=== PATIENT | female | born 1965 | race Caucasian/White ===

== ENCOUNTER 2017-04-07 08:00 | Day surgery (SDC) | payer OTHER ==
[~2017-04-07] VITALS: Ht 157.5 cm; Wt 70.3 kg
[~2017-04-07 08:00] MED LIST: ADVIL200 MG PO
--- NOTE | 2017-04-07 11:17 | NUR ---
04/07/17 1117 Elio Padilla BUNG REMOVER MEDICATING PT FOR PAIN AND ANXIETY DURING REPORT.
--- NOTE | 2017-04-07 13:08 | NUR ---
PT TOLERATED CRACKERS AND CHICKEN NOODLE SOUP. NO NAUSEA NOTED. PT UP TO THE BATHROOM AND VOID REPORTED. PT BACK TO ROOM AND GETTING DRESSED.
--- NOTE | 2017-04-07 13:47 | NUR ---
PT STEADY ON FEET WITH ONE PERSON STAND BY ASSIST. PT TOLERATES PO FOOD AND FLUIDS AND VOIDS WITHOUT ISSUE. PT DRESSES SELF. DISCHARGE INSTURCTONS REVIEWED WITH PT AND FRIEND. PT AND FRIEND VERBALIZE UNDERSTANDING OF INSTRUCTIONS. AMISH ASKED AND ANSWERED.
--- NOTE | 2017-04-07 15:10 | OR ---
[facility] [address], [place] [address] Signed DATE OF OPERATION: 04/07/2017 SURGEON: Tulio Helm MD PREOPERATIVE DIAGNOSIS: Chronic sinusitis with a septal deformity. POSTOPERATIVE DIAGNOSIS: Chronic sinusitis with a septal deformity. PROCEDURES: Septoplasty and bilateral intranasal ethmoidectomy. ANESTHESIA: General LMA, Mateus PEREZ. PREOPERATIVE HISTORY: Cleo is a 51-year-old lady with chronic sinusitis and abnormal CAT scan, despite appropriate medications. She has facial pain, headaches, nasal congestion, drainage, and unresponsive to appropriate medication. She is taken to the operating room for the above-mentioned procedures. OPERATIVE PROCEDURE AND FINDINGS: After informed consent, the patient was taken to the operating room, and placed in the supine position, where general LMA anesthesia was induced. The patient and procedure were verified. The preop CT was viewed throughout. The patient received preoperative intranasal oxymetazoline and intravenous Ancef. Headlight nasal speculum exam of the nasal cavity showed a significant septal deformity on the left side making it difficult to access the middle meatus. Septal mucosa was injected with 1% lidocaine with epinephrine and the septal deformity was removed with the Radha. Airway was improved. Access to the middle meatus obtained in this manner. There was a small spur on the right inferior septum, which was also excised with the Radha. The left side was then approached. The middle turbinate was medialized and the ethmoid bulla taken down with the Radha. Anterior and posterior ethmoid air cells were opened per CT review. There was fairly significant polypoid mucosa present in these sinuses. All affected sinuses were opened and middle meatal antrostomy was made with a curved ring curette and the sinus cleaned out with a curette. The antrostomy was widened with the Radha. Bleeding was minimal. Packing was placed on this side. A Bravo Cong coated with Neosporin in the middle meatus and a trimmed Merocel pack in the nasal Electronically Signed By: TULIO HELM MD 04/07/17 1510 PATIENT NAME: CLEO SHAH OPERATIVE REPORT DATE OF : 63 PHYSICIAN: TULIO HELM MD REPORT #: [id number] REPORT IS CONFIDENTIAL AND NOT TO BE RELEASED WITHOUT AUTHORIZATION [facility] [address] [place] [id number] Signed cavity. The specimen was sent to pathology. The right side was approached similar procedure as the left side quite a bit less polypoid material on this side, but some particularly posteriorly. The sinuses were opened. The antrostomy was made. Packing was placed as per the left side. The packing strings were tied anteriorly over a pad. The pharynx was suctioned clear blood secretions. Hemostasis was verified. The patient was then awakened, extubated, and transported to recovery room in good condition. No complications. Blood loss minimal. Specimen to pathology, packing two pieces of Merocel each nostril. Tulio Helm MD GC/MODL /[id number] Electronically Signed By: TULIO HELM MD 04/07/17 1510 PATIENT NAME: ALYSSACLEOTAMIA FINCH OPERATIVE REPORT DATE OF : 63 PHYSICIAN: TULIO HELM MD REPORT #: [id number] REPORT IS CONFIDENTIAL AND NOT TO BE RELEASED WITHOUT AUTHORIZATION
== END 2017-04-07 13:40 | disposition home or self-care (01) ==
LOC: DS 08:00 → DSVR 13:03 → DS 13:03
PROVIDERS: Otolaryngology
PROC: 09BV8ZZ Excision of Left Ethmoid Sinus, Via Natural or Artificial Opening Endoscopic (ICD-10-PCS; 2017-04-07)
PROC: 09BU8ZZ Excision of Right Ethmoid Sinus, Via Natural or Artificial Opening Endoscopic (ICD-10-PCS; 2017-04-07)
PROC: 09SM0ZZ Reposition Nasal Septum, Open Approach (ICD-10-PCS; principal; 2017-04-07 10:00)
DX: J34.2 Deviated nasal septum (principal); J32.2 Chronic ethmoidal sinusitis; E78.00 Pure hypercholesterolemia, unspecified; I44.7 Left bundle-branch block, unspecified; I34.0 Nonrheumatic mitral (valve) insufficiency; I50.9 Heart failure, unspecified; F41.0 Panic disorder [episodic paroxysmal anxiety]; F32.9 Major depressive disorder, single episode, unspecified; F17.210 Nicotine dependence, cigarettes, uncomplicated; Z90.49 Acquired absence of other specified parts of digestive tract; Z90.710 Acquired absence of both cervix and uterus
CPT/HCPCS: 00160; J0690; J1100; J1885; J2250; J2405; J2704; J2765; J3010; J7120

== ENCOUNTER 2019-06-13 16:35 | Emergency (ER) | payer OTHER ==
[~2019-06-13] VITALS: Ht 157.5 cm; Wt 74.8 kg
--- OUTSIDE RECORDS SUMMARY | ~2019-06-13 | XMS | Clinical Summary ---
Demographics + + + | Address | [address] | | | [place] [address] | + + + | Home Phone | | + + + | Preferred Language | Unknown | + + + | Marital Status | | + + + | Christianity Affiliation | Unknown | + + + | Race | Unknown | + + + | Ethnic Group | Unknown | + + + Author + + + | Author | [facility] [employer] (Historical as of | | | 01-22-19) | + + + | Organization | [facility] [employer] (Historical as of | | | 01-22-19) | + + + | Address | Unknown | + + + | Phone | Unavailable | + + + Support + + +---------+ + | Name | Relationship | Address | Phone | + + +---------+ + | Keyla Cho | ANDREE | Unknown | | + + +---------+ + Care Team Providers + +------+ + | Care Pellet Preparation Operator Name | Role | Phone | + +------+ + | Dolores Mayorga PA-C | PP | | + +------+ + Allergies No Known Allergies Current Medications + + +--------+---------+------+------+-------+ | Prescription | Sig. | Disp. | Refills | Star | End | Statu | | | | | | t | Date | s | | | | | | Date | | | + + +--------+---------+------+------+-------+ | potassium chloride | Take 20 mEq by mouth | | 0 | 11/1 | | Activ | | SA (KNOAH MICHELLE) | daily. | | | 5/20 | | e | | 20 MEQ | | | | 17 | | | | tabletIndications: | | | | | | | | when taking | | | | | | | | furosemide | | | | | | | + + +--------+---------+------+------+-------+ | gabapentin | Take 300 mg by mouth | | 0 | 05/1 | | Activ | | (NEURONTIN) 300 MG | 3 (three) times | | | 8/20 | | e | | capsule | daily. | | | 18 | | | + + +--------+---------+------+------+-------+ | atorvastatin | take 1 tablet by | 90 | 0 | 06/1 | | Activ | | (LIPITOR) 20 MG | mouth every evening | tablet | | 7/20 | | e | | tablet | | | | 19 | | | + + +--------+---------+------+------+-------+ | furosemide (LASIX) | take 1 tablet by | 90 | 0 | 06/1 | | Activ | | 20 MG tablet | mouth every morning | tablet | | 7/20 | | e | | | | | | 19 | | | + + +--------+---------+------+------+-------+ | lisinopril | take 1 tablet by | 90 | 0 | 06/1 | | Activ | | (ZESTRIL) 5 MG | mouth once daily | tablet | | 7/20 | | e | | tablet | | | | 19 | | | + + +--------+---------+------+------+-------+ | carvedilol (COREG) | take 1 tablet by | 180 | 0 | 06/1 | | Activ | | 25 MG tablet | mouth twice a day | tablet | | 7/20 | | e | | | with meals | | | 19 | | | + + +--------+---------+------+------+-------+ Active Problems + + + | Problem | Noted Date | + + + | Dilated cardiomyopathy (HCC) | | + + + | Chronic systolic CHF (congestive heart failure) (HCC) | | + + + | LBBB (left bundle branch block) | | + + + Family History + + +------+ + | Medical History | Relation | Name | Comments | + + +------+ + | Stroke | Brother | | | + + +------+ + | Drug abuse | Daughter | | | + + +------+ + | Cancer | Maternal | | pancreatic CA | | | Grandfath | | | | | er | | | + + +------+ + | Heart failure | Maternal | | | | | Grandmoth | | | | | er | | | + + +------+ + | Thyroid disease | Maternal | | | | | Grandmoth | | | | | er | | | + + +------+ + | COPD | Mother | | | + + +------+ + | Diabetes type II | Mother | | | + + +------+ + | Heart failure | Mother | | | + + +------+ + | Hypertension | Mother | | | + + +------+ + | Stroke | Mother | | | + + +------+ + + +------+ + + | Relation | Name | Status | Comments | + +------+ + + | Brother | | Alive | | + +------+ + + | Brother | | Alive | | + +------+ + + | Daughter | | | "central nervous system vasculitis" | | | | (Age | | | | | 24) | | + +------+ + + | Daughter | | Alive | | + +------+ + + | Father | | Other | unknown | + +------+ + + | Maternal Grandfather | | | | + +------+ + + | Maternal Grandmother | | | | + +------+ + + | Mother | | | COPD | | | | (Age | | | | | 72) | | + +------+ + + Social History + +-------+ +--------+------+ | Tobacco Use | Types | Packs/Day | Years | Date | | | | | Used | | + +-------+ +--------+------+ | Current Every Day | | 0.5 | 43 | | | Smoker | | | | | + +-------+ +--------+------+ + +---+---+---+ | Smokeless Tobacco: | | | | | Never Used | | | | + +---+---+---+ + + | Tobacco Cessation: Ready to Quit: Yes; Counseling Given: Yes | | 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 | + + + + +---------+ + | Alcohol Use | Drinks/We | oz/Week | Comments | | | ek | | | + + +---------+ + | No | | | | + + +---------+ + + + + | Sex Assigned at | Date Recorded | | | | + + + | Not on file | | + + + Last Filed Vital Signs + + + + | Vital Sign | Reading | Time Taken | + + + + | Blood Pressure | 132/80 | 11/23/2017 9:54 AM PDT | + + + + | Pulse | 70 | 11/23/2017 9:54 AM PDT | + + + + | Temperature | - | - | + + + + | Respiratory Rate | 18 | 11/23/2017 9:54 AM PDT | + + + + | Oxygen Saturation | 96% | 11/23/2017 9:54 AM PDT | + + + + | Inhaled Oxygen | - | - | | Concentration | | | + + + + | Weight | 81.4 kg (179 lb 8 | 11/23/2017 9:54 AM PDT | | | oz) | | + + + + | Height | 157.5 cm (5' 2") | 11/23/2017 9:54 AM PDT | + + + + | Body Mass Index | 32.83 | 11/23/2017 9:54 AM PDT | + + + + Plan of Treatment + + + + + | Health Maintenance | Due Date | Last Done | Comments | + + + + + | Vaccine: | | | | | Dtap/Tdap/Td (1 - | 4 | | | | Tdap) | | | | + + + + + | Vaccine: | | | | | Pneumococcal 19-64 | 4 | | | | (PPSV23 only) Medium | | | | | Risk (1 of 1 - | | | | | PPSV23) | | | | + + + + + | Cervical Cancer | | | | | Screening (Pap) | 5 | | | + + + + + | Breast Cancer | | | | | Screening | 5 | | | | (Mammogram) | | | | + + + + + | Colon Cancer | | | | | Screening | 5 | | | | (Colonoscopy) | | | | + + + + + | Vaccine: Zoster (1 | | | | | of 2) | 5 | | | + + + + + | Vaccine: Influenza | | | | | (#1) | 9 | | | + + + + + Results Not on filefrom Last 3 Months Insurance + +--------+ +------+-------+ + | Payer | Benefi | Subscriber | Type | Phone | Address | | | t Plan | ID | | | | | | / | | | | | | | Group | | | | | + +--------+ +------+-------+ + | MEDICAID | ABNER | [id number] | | | [address] | | | N | | | | [place], [place] | | | [place] | | | | [phone] | | | HOME CARE MANAGER RN | | | | | + +--------+ +------+-------+ + + +--------+ +--------+ + + | Guarantor Name | Accoun | Relation to | Date | Phone | Billing Address | | | t Type | Patient | of | | | | | | | | | | + +--------+ +--------+ + + | CLEO ROLON | Person | Self [birth year] Home: | [address] | | [address]/Fam | | 1966 | [phone] | [place] [address] | | | imelda | | | [phone] | | + +--------+ +--------+ + +
--- OUTSIDE RECORDS SUMMARY | ~2019-06-13 | XMS | Encounter Summary ---
Demographics + + + | Address | [address] | | | [place] [address] | + + + | Home Phone | | + + + | Preferred Language | Unknown | + + + | Marital Status | | + + + | Worship Affiliation | Unknown | + + + | Race | Unknown | + + + | Ethnic Group | Unknown | + + + Author + + + | Author | [facility] | | | and [place] | + + + | Organization | [facility] | | | and [place] | + + + | Address | Unknown | + + + | Phone | Unavailable | + + + Support + + +---------+ + | Name | Relationship | Address | Phone | + + +---------+ + | Keyla Cho | ECON | Unknown | | + + +---------+ + Care Team Providers + +------+ + | Care Stock Room Manager Name | Role | Phone | + +------+ + | Dolores Mayorga | PCP | | + +------+ + Reason for Visit + + + | Reason | Comments | + + + | Medication Refill | | + + + Encounter Details +--------+--------+ + + + | Date | Type | Department | Care Team | Description | +--------+--------+ + + + | 04/05/ | Refill | [facility] | Suki Emery | Medication Refill | | 2019 | | CARDIOLOGY [place] | [address] | | | | | [address] | [address] | | | | | [address] | [place] [address] | | | | | [place], [place] | [phone] | | | | | [address] | | | | | | [phone] | | | +--------+--------+ + + + Social History + + + +--------+ + | Tobacco Use | Types | Packs/Day | Years | Date | | | | | Used | | + + + +--------+ + | Current Every Day | Cigarettes | 0.5 | 46 | Started: 03/28/1974 | | Smoker | | | | | + + + +--------+ + + +---+---+---+ | Smokeless Tobacco: | | | | | Never Used | | | | + +---+---+---+ + + | 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 | + + documented as of this encounter Plan of Treatment +--------+---------+ + + + | Date | Type | Specialty | Care Team | Description | +--------+---------+ + + + | 11/14/ | Office | Cardiology | Harjinder Walker, | | | 2019 | Visit | | MD [address] | | | | | | [place], | | | | | | [place] [address] | | | | | | [phone] | | | | | | | | +--------+---------+ + + + documented as of this encounter Visit Diagnoses Not on filedocumented in this encounter"
--- OUTSIDE RECORDS SUMMARY | ~2019-06-13 | XMS | Encounter Summary ---
Demographics + + + | Address | [address] | | | [place] [address] | + + + | Home Phone | | + + + | Preferred Language | Unknown | + + + | Marital Status | | + + + | Christianity Affiliation | Unknown | + + + | Race | Unknown | + + + | Ethnic Group | Unknown | + + + Author + + + | Author | [facility] | | | and [place] | + + + | Organization | [facility] | | | and [place] [...] Team Providers + +------+ + | Care Parts Counter Salesperson Name | Role | Phone | + [...] Description | +--------+--------+ + + + | 02/16/ | Refill | [facility] | Suki Emery | Medication Refill | | 2019 | | CARDIOLOGY [place] | [address] | | | | | [address] | [address] | | | | | [address] | [place] [address] | | | | | [place] | [phone] | | | | | [address] | | | | | | [phone] | | | +--------+--------+ + + + Social History + +-------+ +--------+------+ | Tobacco Use | Types | Packs/Day | Years | Date | | | | | Used | | + +-------+ +--------+------+ | Current Every Day | | 0.5 | | | | Smoker | | | | | + +-------+ +--------+------+ + + | 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
--- OUTSIDE RECORDS SUMMARY | ~2019-06-13 | XMS | Encounter Summary ---
Demographics + + + | Address | [address] | | | [place] [address] | + + + | Home Phone | | + + + | Preferred Language | Unknown | + + + | Marital Status | | + + + | Sabianism Affiliation | Unknown | + + + | Race | Unknown | + + + | Ethnic Group | Unknown | + + + Author + + + | Author | [facility] | | | and [place] | + + + | Organization | [facility] | | | and [place] | [...] Team Providers + +------+ + | Care Database Programmer Analyst Name | Role | Phone | + +------+ + | Dolores Mayorga | PCP | | + +------+ + Encounter Details +--------+ + + + + | Date | Type | Department | Care Team | Description | +--------+ + + + + | 07/03/ | Orders Only | [facility] | Harjinder Walker, | | | 2018 | | CARDIOLOGY [place] | [address] | | | | | [address] | [place], | | | | | [place] | [place] [address] | | | | | [address] | [phone] | | | | | [phone] | | | +--------+ + + + + Social History + +-------+ +--------+------+ | Tobacco Use | Types | Packs/Day | Years | Date | | | | | Used | | + +-------+ +--------+------+ | Never Assessed | | | | | + +-------+ +--------+------+ + + + | Sex Assigned at [...] | | | | | | [place] [address] | | | | | | [phone] | | | | | | | | +--------+---------+ + + + documented as of this encounter Procedures + +--------+ + + + | Procedure Name | Priori | Date/Time | Associated Diagnosis | Comments | | | ty | | | | + +--------+ + + + | COMPREHENSIVE | Routin | 07/03/2017 | | Results for this | | METABOLIC PANEL | e | 11:10 AM | | procedure are in the | | | | PST | | results section. | + +--------+ + + + documented in this encounter Results Comprehensive Metabolic Panel (07/03/2017 11:10 AM PST) + + + + + + | Component | Value | Ref Range | Performed | Pathologist | | | | | At | Signature | + + + + + + | Glucose, | 99 | 70 - 100 mg/dL | EXTERNAL | | | Fasting | | | LAB | | + + + + + + | BUN | 13 | 6 - 23 mg/dL | EXTERNAL | | | | | | LAB | | + + + + + + | Creatinine | 0.67 (A) | 0.70 - 1.33 | EXTERNAL | | | | | mg/dL | LAB | | + + + + + + | BUN/Creatin | 19.4 | 6.0 - 28.6 | EXTERNAL | | | ine Ratio | | | LAB | | + + + + + + | Calcium | 9.3 | 8.4 - 10.2 | EXTERNAL | | | | | mg/dL | LAB | | + + + + + + | Protein, | 7.1 | 6.0 - 8.0 g/dL | EXTERNAL | | | Total | | | LAB | | + + + + + + | Albumin | 4.3 | 3.5 - 5.0 | EXTERNAL | | | | | | LAB | | + + + + + + | Globulin | 2.8 | 1.8 - 3.5 | EXTERNAL | | | | | | LAB | | + + + + + + | A/G Ratio | 1.5 | 1.1 - 2.4 | EXTERNAL | | | | | | LAB | | + + + + + + | Bilirubin | 0.5 | 0.0 - 1.2 mg/dL | EXTERNAL | | | Total | | | LAB | | + + + + + + | ALP, | 81 | 31 - 130 | EXTERNAL | | | External | | | LAB | | + + + + + + | ALT | 13 | 7 - 52 U/L | EXTERNAL | | | | | | LAB | | + + + + + + | AST | 17 | 13 - 39 U/L | EXTERNAL | | | | | | LAB | | + + + + + + | Na | 138 | 132 - 143 | EXTERNAL | | | | | mmol/L | LAB | | + + + + + + | K | 3.9 | 3.6 - 5.1 | EXTERNAL | | | | | mmol/L | LAB | | + + + + + + | Cl | 106 | 95 - 112 mmol/L | EXTERNAL | | | | | | LAB | | + + + + + + | CO2 | 24 | 19 - 31 mmol/L | EXTERNAL | | | | | | LAB | | + + + + + + | Anion Gap | 11.9 | 7 - 21 mmol/L | EXTERNAL | | | | | | LAB | | + + + + + + | Estimated | 92 | 60 mg/dL | EXTERNAL | | | GFR | | | LAB | | + + + + + + + + | Specimen | + + | Blood specimen | | (specimen) | + + + +---------+ + + | Performing | Address | City/State/Zipcode | Phone Number | | Organization | | | | + +---------+ + + | EXTERNAL LAB | | | | + +---------+ + + documented in this encounter Visit Diagnoses Not on filedocumented in this encounter"
--- OUTSIDE RECORDS SUMMARY | ~2019-06-13 | XMS | Clinical Summary ---
Demographics + + + | Address | [address] | | | [place] [address] | + + + | Home Phone | | + + + | Preferred Language | Unknown | + + + | Marital Status | | + + + | Orthodoxy Affiliation | Unknown | + + + | Race | Unknown | + + + | Ethnic Group | Unknown | + + + Author + + + | Author | [facility] | | | and [place] | + + + | Organization | [facility] | | | and [...] Team Providers + +------+ + | Care Extract Wringer Name | Role | Phone | + +------+ + | Dolores Mayorga | PCP | | + +------+ + Allergies No Known Allergies Medications + + + +---------+------+------+-------+ | Medication | Sig | Dispensed | Refills | Star | End | Statu | | | | | | t | Date | s | | | | | | Date | | | + + + +---------+------+------+-------+ | gabapentin | Take 300 mg by mouth | | 0 | 05/1 | | Activ | | (NEURONTIN) 300 mg | 3 (three) times | | | 8/20 | | e | | capsule | daily. | | | 18 | | | + + + +---------+------+------+-------+ | loratadine | Take 10 mg by mouth | | 0 | | | Activ | | (ALLERGY) 10 mg | Daily. | | | | | e | | tablet | | | | | | | + + + +---------+------+------+-------+ | carvedilol (COREG) | Take 1 tablet by | 90 | 3 | 10/2 | | Activ | | 25 mg tablet | mouth 2 times daily | tablet | | 1/20 | | e | | | (with breakfast & | | | 19 | | | | | dinner). | | | | | | + + + +---------+------+------+-------+ | furosemide (LASIX) | Take 1 tablet by | 90 | 3 | 10/2 | | Activ | | 20 mg tablet | mouth every morning. | tablet | | 1/20 | | e | | | | | | 19 | | | + + + +---------+------+------+-------+ +---+ + | | Additional | | | informationPatient | | | taking differently: | | | 20 mg Oral DAILY, | | | Reported on | | | 05/09/2019 9:53 AM | +---+ + + + +--------+---+------+---+-------+ | potassium chloride | Take 1 tablet by | 90 | 3 | 10/2 | | Activ | | (KLOR-CON M20) 20 | mouth Daily. | tablet | | 20 | | e | | mEq ER tablet | | | | 19 | | | + + +--------+---+------+---+-------+ | lisinopril | Take 1 tablet by | 90 | 3 | 10/2 | | Activ | | (PRINIVIL, ZESTRIL) | mouth nightly. | tablet | | /20 | | e | | 5 mg tablet | | | | 19 | | | + + +--------+---+------+---+-------+ | nitroglycerin | Place 1 tablet under | 25 | 1 | 10/2 | | Activ | | (NITROSTAT) 0.4 mg | the tongue every 5 | tablet | | 1/20 | | e | | SL tablet | minutes as needed | | | 19 | | | | | for Chest pain. | | | | | | + + +--------+---+------+---+-------+ | atorvaSTATin | Take 1 tablet by | 90 | 3 | 10/2 | | Activ | | (LIPITOR) 20 mg | mouth nightly. | tablet | | 9/20 | | e | | tablet | | | | 19 | | | + + +--------+---+------+---+-------+ | fluticasone | 1 spray by Nasal | | 0 | | | Activ | | (FLONASE) 50 | route Daily. | | | | | e | | mcg/nasal spray | | | | | | | + + +--------+---+------+---+-------+ Active Problems + + + | Problem | Noted Date | + + + | Mild mitral regurgitation | 03/28/2019 | + + + | Dyslipidemia | 03/28/2019 | + + + | RLS (restless legs syndrome) | 03/28/2019 | + + + | Obstructive sleep apnea syndrome in adult | 03/28/2019 | + + + | Dyspnea on exertion | 03/28/2019 | + + + | Non-cardiac chest pain | 03/28/2019 | + + + | Palpitations | 03/28/2019 | + + + | Intermittent claudication | 03/28/2019 | + + + | Pre-diabetes | 03/28/2019 | + + + | Current smoker | 03/28/2019 | + + + | Precordial pain | 03/28/2019 | + + + | Cardiomyopathy, dilated, nonischemic | | + + + | Chronic systolic CHF (congestive heart failure) | | + + + | LBBB (left bundle branch block) | | + + + Encounters +--------+ + + + + | Date | Type | Specialty | Care Team | Description | +--------+ + + + + | 06/13/ | Telephone | Cardiology | Suki Emery | Medication Question | | 2020 | | | [facility] | | +--------+ + + + + | 05/09/ | Office | Cardiology | Suki Emery | Cardiomyopathy, | | 2019 | Visit | | [facility] | dilated, nonischemic | | | | | | (HCC) (Primary Dx); | | | | | | Precordial pain; | | | | | | LBBB (left bundle | | | | | | branch block); | | | | | | Chronic systolic CHF | | | | | | (congestive heart | | | | | | failure) (HCC); Mild | | | | | | mitral | | | | | | regurgitation; | | | | | | Palpitations; | | | | | | Dyslipidemia; | | | | | | Dyspnea on exertion; | | | | | | Obstructive sleep | | | | | | apnea syndrome in | | | | | | adult; Intermittent | | | | | | claudication ([facility]); | | | | | | Pre-diabetes; | | | | | | Current smoker | +--------+ + + + + | 04/05/ | Refill | Cardiology | [email or web address] | Medication Refill | | 2018 | | | [facility] | | +--------+ + + + + | 03/28/ | Office | Cardiology | Suki Emery | Cardiomyopathy, | | 2018 | Visit | | [facility] | dilated, nonischemic | | | | | | ([facility]) (Primary Dx); | | | | | | Chronic systolic | | | | | | CHF (congestive | | | | | | heart failure) | | | | | | ([facility]); LBBB (left | | | | | | bundle branch | | | | | | block); Mild mitral | | | | | | regurgitation; | | | | | | Dyslipidemia; | | | | | | Palpitations; | | | | | | Non-cardiac chest | | | | | | pain; Dyspnea, | | | | | | unspecified type; | | | | | | Intermittent | | | | | | claudication ([facility]); | | | | | | Obstructive sleep | | | | | | apnea syndrome in | | | | | | adult; Pre-diabetes; | | | | | | Current smoker; | | | | | | Precordial pain | +--------+ + + + + from Last 3 Months Family History + + +------+ + | [...] | | + + +------+ + | Diabetes, NIDDM | Mother | | | + + [...] +------+ + + | Brother | | | | + +------+ + + | Daughter | | | "central nervous system vasculitis" | | | | (Age | | | | | 24) | | + +------+ + + | Daughter | | Alive | | + +------+ + + | Daughter | | | | + +------+ + [...] + +------+ + + Social History + + + [...] +---+---+---+ + + | Comments: started smoking patient [facility]er when 8 years oldx | + + [...] recent travel history available. | + + Last Filed Vital Signs + + + + + | Vital Sign | Reading | Time Taken | Comments | + + + + + | Blood Pressure | 106/74 | 05/09/2019 9:20 AM | | | | | PST | | + + + + + | Pulse | 69 | 05/09/2019 9:20 AM | | | | | PST | | + + + + + | Temperature | - | - | | + + + + + | Respiratory Rate | 18 | 11/23/2017 9:56 AM | | | | | PDT | | + + + + + | Oxygen Saturation | 96% | 05/09/2019 9:20 AM | | | | | PST | | + + + + + | Inhaled Oxygen | - | - | | | Concentration | | | | + + + + + | Weight | 81.6 kg (179 lb 12.8 | 05/09/2019 9:20 AM | | | | oz) | PST | | + + + + + | Height | 160 cm (5' 3") | 05/09/2019 9:20 AM | | | | | PST | | + + + + + | Body Mass Index | 31.85 | 05/09/2019 9:20 AM | | | | | PST | | + + + + + Plan of Treatment +--------+---------+ + + + | Date | Type | Specialty | Care Team | Description | +--------+---------+ + + + | 11/14/ | Office | Cardiology | Harjinder Walker, | | | 2020 | Visit | | MD [address] | | | | | | [place], | | | | | | [place] [address] | | | | | | [phone] | | | | | | | | +--------+---------+ + + + + + + + + | Health Maintenance | Due Date | Last Done | Comments | + + + + + | Hepatitis C | | | | | Screening | 5 | | | + + + + + | Vaccine: | | | | | Pneumococcal | 1 | | | | (1 of 1 - PPSV23) | | | | + + + + + | Cervical Cancer | | | | | Screening (Pap) | 5 | | | + + + + + | Breast Cancer | | | | | Screening | 0 | | | + + + + + | Colorectal Cancer | | | | | Screening | 5 | | | | (Colonoscopy) | | | | + + + + + | Vaccine: Zoster (1 | | | | | of 2) | 5 | | | + + + + + | Vaccine: | | 06/30/2016, 04/18/2010, | | | Dtap/Tdap/Td (4 - | 7 | 09/23/2007 | | | Td) | | | | + + + + + | Vaccine: Influenza | Completed | 04/05/2019, 04/09/2016, | | | | | 07/05/2014, Additional history | | | | | exists | | + + + + + Procedures + +--------+ + + + | Procedure Name | Priori | Date/Time | Associated Diagnosis | Comments | | | ty | | | | + +--------+ + + + | LABS - EXTERNAL SCAN | | 04/20/2019 | | Results for this | | | | 12:00 AM | | procedure are in the | | | | PST | | results section. | + +--------+ + + + | ECG 12 LEAD | Routin | 03/28/2019 | Cardiomyopathy, | Results for this | | | e | 10:30 AM | dilated, nonischemic | procedure are in the | | | | PDT | ([facility]) Chronic | results section. | | | | | systolic CHF | | | | | | (congestive heart | | | | | | failure) ([facility]) LBBB | | | | | | (left bundle branch | | | | | | block) Mild mitral | | | | | | regurgitation | | | | | | Dyslipidemia | | | | | | Palpitations | | | | | | Non-cardiac chest | | | | | | pain Dyspnea, | | | | | | unspecified type | | | | | | Intermittent | | | | | | claudication (HCC) | | | | | | Obstructive sleep | | | | | | apnea syndrome in | | | | | | adult Pre-diabetes | | | | | | Current smoker | | + +--------+ + + + from Last 3 Months Results LABS - EXTERNAL SCAN (04/20/2019 12:00 AM PST) + + + | Narrative | Performed At | + + + | Ordered by an | | | unspecified provider. | | + + + ECG 12 lead (03/28/2019 10:30 AM PDT) + + + + + + | Component | Value | Ref Range | Performed | Pathologist | | | | | At | Signature | + + + + + + | VENTRICULAR | 64 | BPM | [facility] | | | RATE EKG | | | | | + + + + + + | ATRIAL RATE | 64 | BPM | [facility] | | + + + + + + | P-R | 176 | ms | [facility] | | | INTERVAL | | | | | + + + + + + | QRS | 146 | ms | [facility] | | | DURATION | | | | | + + + + + + | Q-T | 470 | ms | [facility] | | | INTERVAL | | | | | + + + + + + | Q-T | 484 | ms | [facility] | | | INTERVAL | | | | | | (CORRECTED) | | | | | + + + + + + | P WAVE AXIS | 63 | degrees | [facility] | | + + + + + + | QRS AXIS | 74 | degrees | [facility] | | + + + + + + | T AXIS | -35 | degrees | [facility] | | + + + + + + | INTERPRETAT | Please refer to | | [facility] | | | ION TEXT | Providers office visit | | | | | | note for Providers | | | | | | Interpretation.Confirmed | | | | | | by [facility] [place] Read Only, | | | | | | [facility] Sarah ([id number]), | | | | | | visual effects editor Salazar Bryan | | | | | | ([id number]) on 03/28/2019 | | | | | | 10:39:42 AM | | | | + + + + + + + + | Specimen | + + | | + + + + + | Narrative | Performed At | + + + | | | + + + + +---------+ + + | Performing | Address | City/State/Zipcode | Phone Number | | Organization | | | | + +---------+ + + | [facility] | | | | + +---------+ + + from Last 3 Months Insurance + +--------+ +--------+ +---------+--------+ | Payer | Benefi | Subscriber | Effect | Phone | Address | Type | | | t Plan | ID | gael | | | | | | / | | Dates | | | | | | Group | | | | | | + +--------+ +--------+ +---------+--------+ | [employer] | [employer] | [id number] | | [phone] | | Medica | | MEDICAID HMO | HEALTH | | [id number] | 1 | | id | | | MDCD | | esent | | | | | | [place]MO [place] | | | | | | + +--------+ +--------+ +---------+--------+ + +--------+ +--------+ + + | Guarantor Name | Accoun | Relation to | Date | Phone | Billing Address | | | t Type | Patient | of | | | | | | | | | | + +--------+ +--------+ + + | Mary Ann Rolon | Person | Self [birth year] | [address] | | | al/Fam | | 1966 | [phone] | [place] [address] | | | imelda | | | 1 (Home) | | + +--------+ +--------+ + + Advance Directives + + + + + | Type | Date Recorded | Patient | Explanation | | | | Park Interpretive Specialist | | + + + + + | Power of | | | | | Screen Printing Machine Loader Unloader | | | | + + + + + | Advance | | | | | Directive | | | | + + + + +
--- OUTSIDE RECORDS SUMMARY | ~2019-06-13 | XMS | Encounter Summary ---
Demographics + + + | Address | [address] | | | [place] [address] | + + + | Home Phone | | + + + | Preferred Language | Unknown | + + + | Marital Status | | + + + | Pentecostal Affiliation | Unknown | + + + | Race | Unknown | + + + | Ethnic Group | Unknown | + + + Author + + + | Author | [facility] | | | and [place] | + + + | Organization | [facility] | | | and [place] [...] Team Providers + +------+ + | Care Engineering Design Supervisor Name | Role | Phone | + +------+ + | Dolores Mayorga | PCP | | + +------+ + Encounter Details +--------+ + + + + | Date | Type | Department | Care Team | Description | +--------+ + + + + | 04/28/ | Orders Only | [facility] | Harjinder Walker, | | | 2017 | | CONVERSION [address] | [address] | | | | | [address] | [place], | | | | | [place], [place] | [place] [address] | | | | | [id number] | [phone] | | | | | [phone] | | | +--------+ + + + [...] | | | | | | [place] [address] | | | | | | [phone] | | | | | | | | +--------+---------+ + + + documented as of this encounter Procedures + +--------+ + + + | Procedure Name | Priori | Date/Time | Associated Diagnosis | Comments | | | ty | | | | + +--------+ + + + | ECHO INTERPRETATION | Routin | 04/28/2017 | | Results for this | | OF OUTSIDE FILMS | e | 4:00 PM | | procedure are in the | | | | PST | | results section. | + +--------+ + + + documented in this encounter Results ECHO Interpretation of Outside Films (04/28/2017 4:00 PM PST) + + | Specimen | + + | | + + + + + | Impressions | Performed At | + + + | 1. The left ventricle is normal in size, wall thickness and mildly | | | impaired systolic function EF 45-50%. 2. The diastolic filling | | | pattern indicates impaired relaxation consistent with mild dysfunction | | | (Grade I). 3. The right ventricle is normal in size and function. | | | 4. Mild mitral regurgitation with mildly enlarged left atrium. 5. | | | Mild tricuspid regurgitation with no pulmonary hypertension. 6. There | | | is no pericardial effusion. | | + + + + + + | Narrative | Performed At | + + + | Patient Name: Mary Ann Rolon Date of : 1965 | | | Performing Physician: Erickson Dubois MD | | | | | | INDICATIONS dilated cardiomyopathy CONCLUSIONS | | | 1. The left ventricle is normal in size, wall thickness | | | and mildly impaired systolic function EF 45-50%. 2. The diastolic | | | filling pattern indicates impaired relaxation consistent with mild | | | dysfunction (Grade I). 3. The right ventricle is normal in size and | | | function. 4. Mild mitral regurgitation with mildly enlarged left | | | atrium. 5. Mild tricuspid regurgitation with no pulmonary | | | hypertension. 6. There is no pericardial effusion. FINDINGS | | | -------- ECG rhythm: Sinus rhythm. Study: A 2-dimensional | | | transthoracic echocardiogram with m-mode, spectral and color flow | | | Doppler was perfomed. Study: This was a technically adequate study. | | | Left Ventricle: Overall left ventricular systolic function is mildly | | | impaired with, an EF between 45 - 50 %. Left Ventricle: The left | | | ventricle cavity size is normal. Left Ventricle: Left ventricular | | | wall thickness is normal. Left Ventricle: The diastolic filling | | | pattern indicates impaired relaxation consistent with mild dysfunction | | | (Grade I). Right Ventricle: The right ventricle is normal in size | | | and function. Left Atrium: The left atrium is mildly enlarged. Right | | | Atrium: The right atrium is normal in size. Aortic Valve: The aortic | | | valve is trileaflet and appears structurally normal. Aortic Valve: | | | There is no evidence of aortic regurgitation. Aortic Valve: There is | | | no evidence of aortic stenosis. Mitral Valve: The mitral valve is | | | normal. Mitral Valve: Mild mitral regurgitation is present. | | | Tricuspid Valve: The tricuspid valve appears structurally normal. | | | Tricuspid Valve: Mild tricuspid regurgitation present. Tricuspid | | | Valve: There is no evidence of pulmonary hypertension. Tricuspid | | | Valve: The right ventricular systolic pressure (pulmonary artery | | | systolic pressure), as measured by Doppler, is 17.78mmHg. Pulmonic | | | Valve: Pulmonic valve appears structurally normal. Pulmonic Valve: | | | Trace pulmonic regurgitation. Pericardium: There is no pericardial | | | effusion. Pericardium: No pleural effusion seen. IVC/Hepatic Veins: | | | The inferior vena cava is normal in size and collapses > 50 % with | | | sniff, indicating normal central venous pressures. Aorta: The aortic | | | root, ascending aorta and aortic arch are normal. MEASUREMENTS | | | Ao sinus: 3.[address] junct: 2.73 cm | | | EDV(Teich): 127.02 ml IVSd: 0.97 cm LVIDd: 5.15 cm LVPWd: | | | 0.68 cm LVOT Diam: 2.09 cm %FS: 11.98 % EF(Teich): | | | 25.74 % ESV(Teich): 94.32 ml LVIDs: 4.53 cm SV(Teich): | | | 32.70 ml RVIDd: 2.27 cm LVEF MOD A2C: 40.96 % SV MOD A2C: | | | 77.22 ml LVEF MOD A4C: 33.03 % SV MOD A4C: 46.59 ml EF | | | Biplane: 39.22 % LVEDV MOD BP: 174.95 ml LVESV MOD BP: | | | 106.32 ml LVEDV MOD A2C: 188.49 ml LVLd A2C: 9.14 cm LVEDV | | | MOD A4C: 141.03 ml LVLd A4C: 7.88 cm LVESV MOD A2C: 111.27 | | | ml LVLs A2C: 7.70 cm LVESV MOD A4C: 94.43 ml LVLs A4C: | | | 7.07 cm LAESV(A-L): 57.63 ml LAESV Index (A-L): 32.38 ml/m2 | | | LAAs A2C: 16.68 cm2 LAESV A-L A2C: 52.41 ml LALs A2C: 4.50 | | | cm LAAs A4C: 18.35 cm2 LAESV A-L A4C: 62.56 ml LALs A4C: | | | 4.56 cm Mikaela: 11.73 cm2 RAEDV A-L: 31.52 ml RAEDV MOD: | | | 29.75 ml RALd: 3.71 cm TAPSE: 1.75 cm AV maxP.01 mmHg | | | AV meanP.68 mmHg AV Vmax: 1.50 m/s AV Vmean: 1.00 m/s | | | AV VTI: 29.02 cm JOHANN Vmax: 2.08 cm2 JOHANN (VTI): 1.99 cm2 | | | AVAI Vmax: 0.00 cm2/m2 AVAI (VTI): 0.00 cm2/m2 LVOT maxPG: | | | 3.31 mmHg LVOT meanP.75 mmHg LVSI Dopp: 32.49 ml/m2 LVSV | | | Dopp: 57.83 ml LVOT Vmax: 0.91 m/s LVOT Vmean: 0.60 m/s | | | LVOT VTI: 16.81 cm MV A Esa: 0.92 m/s MV DecT: 230.54 ms | | | MV E Esa: 0.63 m/s MV E/A Ratio: 0.69 Septal e': 0.03 m/s | | | Septal E/e': 16.43 Lateral e': 0.05 m/s Lateral E/e': 12.66 | | | RAP: 5 mmHg RVSP: 17.77 mmHg TR maxP.77 mmHg TR | | | Vmax: 1.78 m/s Document Review Attorney: Authenticated by: Silvino | | | Erickson GARCIAS Report Date/Time: 04-28-2017 18:15:10 | | + + + + + | Procedure Note | + + | Jose R Hussein Conversion - 01/27/2019 8:23 PM PDT Patient Name: Carolina Rolon of | | : 1965 Performing Physician: Erickson Dubois | | MD INDICATIONS d | | ilated cardiomyopathy CONCLUSIONS 1. The left ventricle is normal in size, | | wall thickness and mildly impaired systolic function EF 45-50%.2. The diastolic filling | | pattern indicates impaired relaxation consistent with mild dysfunction (Grade I).3. The | | right ventricle is normal in size and function.4. Mild mitral regurgitation with mildly | | enlarged left atrium.5. Mild tricuspid regurgitation with no pulmonary hypertension.6. | | There is no pericardial effusion. FINDINGS--------ECG rhythm: Sinus rhythm.Study: A | | 2-dimensional transthoracic echocardiogram with m-mode, spectral and color flow Doppler | | was perfomed.Study: This was a technically adequate study.Left Ventricle: Overall left | | ventricular systolic function is mildly impaired with, an EF between 45 - 50 %.Left | | Ventricle: The left ventricle cavity size is normal.Left Ventricle: Left ventricular | | wall thickness is normal.Left Ventricle: The diastolic filling pattern indicates | | impaired relaxation consistent with mild dysfunction (Grade I).Right Ventricle: The | | right ventricle is normal in size and function.Left Atrium: The left atrium is mildly | | enlarged.Right Atrium: The right atrium is normal in size.Aortic Valve: The aortic valve | | is trileaflet and appears structurally normal.Aortic Valve: There is no evidence of | | aortic regurgitation.Aortic Valve: There is no evidence of aortic stenosis.Mitral Valve: | | The mitral valve is normal.Mitral Valve: Mild mitral regurgitation is present.Tricuspid | | Valve: The tricuspid valve appears structurally normal.Tricuspid Valve: Mild tricuspid | | regurgitation present.Tricuspid Valve: There is no evidence of pulmonary | | hypertension.Tricuspid Valve: The right ventricular systolic pressure (pulmonary artery | | systolic pressure), as measured by Doppler, is 17.78mmHg.Pulmonic Valve: Pulmonic valve | | appears structurally normal.Pulmonic Valve: Trace pulmonic regurgitation.Pericardium: | | There is no pericardial effusion.Pericardium: No pleural effusion seen.IVC/Hepatic | | Veins: The inferior vena cava is normal in size and collapses > 50 % with sniff, | | indicating normal central venous pressures.Aorta: The aortic root, ascending aorta and | | aortic arch are normal. MEASUREMENTS Ao sinus: 3.[address] junct: 2.73 | | cmEDV(Teich): 127.02 mlIVSd: 0.97 cmLVIDd: 5.15 cmLVPWd: 0.68 cmLVOT Diam: | | 2.09 cm%FS: 11.98 %EF(Teich): 25.74 %ESV(Teich): 94.32 mlLVIDs: 4.53 | | cmSV(Teich): 32.70 mlRVIDd: 2.27 cmLVEF MOD A2C: 40.96 %SV MOD A2C: 77.22 mlLVEF | | MOD A4C: 33.03 %SV MOD A4C: 46.59 mlEF Biplane: 39.22 %LVEDV MOD BP: 174.95 | | mlLVESV MOD BP: 106.32 mlLVEDV MOD A2C: 188.49 mlLVLd A2C: 9.14 cmLVEDV MOD A4C: | | 141.03 mlLVLd A4C: 7.88 cmLVESV MOD A2C: 111.27 mlLVLs A2C: 7.70 cmLVESV MOD A4C: | | 94.43 mlLVLs A4C: 7.07 cmLAESV(A-L): 57.63 mlLAESV Index (A-L): 32.38 ml/m2LAAs | | A2C: 16.68 [id number] A-L A2C: 52.41 mlLALs A2C: 4.50 cmLAAs A4C: 18.35 [id number] | | A-L A4C: 62.56 mlLALs A4C: 4.56 cmRAAd: 11.73 [id number] A-L: 31.52 mlRAEDV MOD: | | 29.75 mlRALd: 3.71 cmTAPSE: 1.75 cmAV maxP.01 mmHgAV meanP.68 mmHgAV | | Vmax: 1.50 m/Khari Vmean: 1.00 m/Khari VTI: 29.02 cmAVA Vmax: 2.08 cm2AVA (VTI): | | 1.99 [id number] Vmax: 0.00 cm2/m2AVAI (VTI): 0.00 cm2/m2LVOT maxP.31 mmHgLVOT | | meanP.75 mmHgLVSI Dopp: 32.49 ml/m2LVSV Dopp: 57.83 mlLVOT Vmax: 0.91 | | m/sLVOT Vmean: 0.60 m/sLVOT VTI: 16.81 cmMV A Esa: 0.92 m/sMV DecT: 230.54 msMV | | E Esa: 0.63 m/sMV E/A Ratio: 0.69Septal e': 0.03 m/sSeptal E/e': 16.43Lateral | | e': 0.05 m/sLateral E/e': 12.66RAP: 5 mmHgRVSP: 17.77 mmHgTR maxP.77 | | mmHgTR Vmax: 1.78 m/s Document Review Attorney:Authenticated by: Erickson Dubois MDReport | | Date/Time: 04-28-2017 18:15:10 IMPRESSION: 1. The left ventricle is normal in size, wall | | thickness and mildly impaired systolic function EF 45-50%.2. The diastolic filling | | pattern indicates impaired relaxation consistent with mild dysfunction (Grade I).3. The | | right ventricle is normal in size and function.4. Mild mitral regurgitation with mildly | | enlarged left atrium.5. Mild tricuspid regurgitation with no pulmonary hypertension.6. | | There is no pericardial effusion. | |Ao st junct: 2.73 cm | |EDV(Teich): 127.02 ml | |IVSd: 0.97 cm | |LVIDd: 5.15 cm | |LVPWd: 0.68 cm | |LVOT Diam: 2.09 cm | |%FS: 11.98 % | |EF(Teich): 25.74 % | |ESV(Teich): 94.32 ml | |LVIDs: 4.53 cm | |SV(Teich): 32.70 ml | |RVIDd: 2.27 cm | |LVEF MOD A2C: 40.96 % | |SV MOD A2C: 77.22 ml | |LVEF MOD A4C: 33.03 % | |SV MOD A4C: 46.59 ml | |EF Biplane: 39.22 % | |LVEDV MOD BP: 174.95 ml | |LVESV MOD BP: 106.32 ml | |LVEDV MOD A2C: 188.49 ml | |LVLd A2C: 9.14 cm | |LVEDV MOD A4C: 141.03 ml | |LVLd A4C: 7.88 cm | |LVESV MOD A2C: 111.27 ml | |LVLs A2C: 7.70 cm | |LVESV MOD A4C: 94.43 ml | |LVLs A4C: 7.07 cm | |LAESV(A-L): 57.63 ml | |LAESV Index (A-L): 32.38 ml/m2 | |LAAs A2C: 16.68 cm2 | |LAESV A-L A2C: 52.41 ml | |LALs A2C: 4.50 cm | |LAAs A4C: 18.35 cm2 | |LAESV A-L A4C: 62.56 ml | |LALs A4C: 4.56 cm | |Mikaela: 11.73 cm2 | |RAEDV A-L: 31.52 ml | |RAEDV MOD: 29.75 ml | |RALd: 3.71 cm | |TAPSE: 1.75 cm | |AV maxP.01 mmHg | |AV meanP.68 mmHg | |AV Vmax: 1.50 m/s | |AV Vmean: 1.00 m/s | |AV VTI: 29.02 cm | |JOHANN Vmax: 2.08 cm2 | |JOHANN (VTI): 1.99 cm2 | |AVAI Vmax: 0.00 cm2/m2 | |AVAI (VTI): 0.00 cm2/m2 | |LVOT maxP.31 mmHg | |LVOT meanP.75 mmHg | |LVSI Dopp: 32.49 ml/m2 | |LVSV Dopp: 57.83 ml | |LVOT Vmax: 0.91 m/s | |LVOT Vmean: 0.60 m/s | |LVOT VTI: 16.81 cm | |MV A Esa: 0.92 m/s | |MV DecT: 230.54 ms | |MV E Esa: 0.63 m/s | |MV E/A Ratio: 0.69 | |Septal e': 0.03 m/s | |Septal E/e': 16.43 | |Lateral e': 0.05 m/s | |Lateral E/e': 12.66 | |RAP: 5 mmHg | |RVSP: 17.77 mmHg | |TR maxP.77 mmHg | |TR Vmax: 1.78 m/s | | | |Document Review Attorney: | |Authenticated by: Erickson Dubois MD | |Report Date/Time: 04-28-2017 18:15:10 | | | |IMPRESSION: | |1. The left ventricle is normal in size, wall thickness and mildly impaired systolic functi on EF 45-50%. | |2. The diastolic filling pattern indicates impaired relaxation consistent with mild dysfunc tion (Grade I). | |3. The right ventricle is normal in size and function. | |4. Mild mitral regurgitation with mildly enlarged left atrium. | |5. Mild tricuspid regurgitation with no pulmonary hypertension. | |6. There is no pericardial effusion. | + + documented in this encounter Visit Diagnoses Not on filedocumented in this encounter"
--- OUTSIDE RECORDS SUMMARY | ~2019-06-13 | XMS | Encounter Summary ---
Demographics + + + | Address | [address] | | | [place] [address] | + + + | Home Phone | | + + + | Preferred Language | Unknown | + + + | Marital Status | | + + + | Uatsdin Affiliation | Unknown | + + + | Race | Unknown | + + + | Ethnic Group | Unknown | + + + Author + + + | Author | [facility] | | | and [place] | + + + | Organization | [facility] | | | and [place] [...] Team Providers + +------+ + | Care Curtain Fitter Name | Role | Phone | + +------+ + | Dolores Mayorga | PCP | | + +------+ + Reason for Referral Diagnostic/Screening (Routine) + +--------+ + + + + | Status | Reason | Specialty | Diagnoses / | Referred By | Referred To | | | | | Procedures | Contact | Contact | + +--------+ + + + + | Authorized | | | Diagnoses | Janiya Emery | | | | | | Suki Cobos, | [facility] | | | | | Cardiomyopat | [address] | [address] | | | | | hy, dilated, | MARII [address]IRES | [place] | | | | | nonischemic | RASHEED F | [place] | | | | | (HCC) | [place], [place] | [address] | | | | | Chronic | [address] | Phone: | | | | | systolic CHF | Phone: | [phone] | | | | | (congestive | [phone] | Fax: | | | | | heart | Fax: | [phone] | | | | | failure) | [phone] | | | | | | (HCC) LBBB | | | | | | | (left bundle | | | | | | | branch | | | | | | | block) | | | | | | | Dyslipidemia | | | | | | | | | | | | | | Palpitations | | | | | | | Dyspnea, | | | | | | | unspecified | | | | | | | type | | | | | | | Pre-diabetes | | | | | | | Current | | | | | | | smoker | | | | | | | Precordial | | | | | | | pain | | | | | | | Procedures | | | | | | | NM Nuclear | | | | | | | Stress Test | | | | | | | (Vasodilator | | | | | | | ) | | | + +--------+ + + + + Diagnostic/Screening (Routine) + +--------+ + + + + | Status | Reason | Specialty | Diagnoses / | Referred By | Referred To | | | | | Procedures | Contact | Contact | + +--------+ + + + + | Authorized | | | Diagnoses | Rupert, | [facility] | | | | | | [facility] | | | | | Cardiomyopat | [address] | [address] | | | | | hy, dilated, | [address] | [place] | | | | | nonischemic | RASHEED F | [place], [place] | | | | | (HCC) | [place], [place] | [address] | | | | | Chronic | [address] | Phone: | | | | | systolic CHF | Phone: | [phone] | | | | | (congestive | [phone] | Fax: | | | | | heart | Fax: | [phone] | | | | | failure) | [phone] | | | | | | ([facility]) LBBB | | | | | | | (left bundle | | | | | | | branch | | | | | | | block) Mild | | | | | | | mitral | | | | | | | regurgitatio | | | | | | | n | | | | | | | Palpitations | | | | | | | Procedures | | | | | | | ECHO | | | | | | | Complete | | | + +--------+ + + + + Reason for Visit + + + | Reason | Comments | + + + | Follow-up, Office | Overdue annual | | Visit | | + + + Encounter Details +--------+---------+ + + + | Date | Type | Department | Care Team | Description | +--------+---------+ + + + | 03/28/ | Office | [facility] | Rupert Suki | Cardiomyopathy, | | 2019 | Visit | CARDIOLOGY [place] | [address] | dilated, nonischemic | | | | [address] | MARII [address]BAL F | ([facility]) (Primary Dx); | | | | [address] | [place] [address] | Chronic systolic | | | | [place] | [phone] | CHF (congestive | | | | [address] | | heart failure) | | | | [phone] | | ([facility]); LBBB (left | | | | | [...] | | | | | | claudication ([facility]); | | | | | | Obstructive sleep | | | | | | apnea syndrome in | | | | | | adult; Pre-diabetes; | | | | | | Current smoker; | | | | | | Precordial pain | +--------+---------+ + + + Social History + + [...] +---+---+---+ + + | Comments: 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 | + + [...] + + documented as of this encounter Last Filed Vital Signs + + + + + | Vital Sign | Reading | Time Taken | Comments | + + + + + | Blood Pressure | 108/66 | 03/28/2019 10:23 AM | | | | | PDT | | + + + + + | Pulse | 65 | 03/28/2019 10:23 AM | | | | | PDT | | + + + + + | Temperature | - | - | | + + + + + | Respiratory Rate | - | - | | + + + + + | Oxygen Saturation | 96% | 03/28/2019 10:23 AM | | | | | PDT | | + + + + + | Inhaled Oxygen | - | - | | | Concentration | | | | + + + + + | Weight | 83.1 kg (183 lb 4.8 | 03/28/2019 10:23 AM | | | | oz) | PDT | | + + + + + | Height | 160 cm (5' 3") | 03/28/2019 10:23 AM | | | | | PDT | | + + + + + | Body Mass Index | 32.47 | 03/28/2019 10:23 AM | | | | | PDT | | + + + + + documented in this encounter Patient Instructions Patient Instructions Suki Emery FNP - 03/28/2019 10:30 AM PDTI have ordered you fasting labs to be done at [facility] and also ordered you an Echo and Stress Test to be done at [facility] I made no changes to medications , and sent in 90 day supply For 1 year Stop Gatorade and drink water , work on decreasing smoking Bring pill bottles to next clinic visit See me back in 6 weeks documented in this encounter Progress Notes Suki Emery FNP - 03/28/2019 10:30 AM PDTFormatting of this note might be differe nt from the original. Date of visit: 03/28/2019 Primary Care Physician: TENZIN Lara CHIEF COMPLAINT: Chief Complaint Patient presents with Follow-up, Office Visit Overdue annual HISTORY OF PRESENT ILLNESS: Ms Mary Ann Rolon is a 53 old woman who is here today overdue for follow-up as not see n since 11/2017, and needs medication refills. She is a patient of Dr. Walker and last seen by him 08/04/2017 She has a history of chest pain and palpitations, history false positive stress test,as 11/2015 w/ angiogram showed normal coronary arteries , nonischemic dilated cardiomyopathy wit h EF 45-50 percent per 04/2017 Echo, history of left bundle branch block, mitral regurgitat ion, dyslipidemia, mild claudication and current smoker. Dr. Walker had started her on low dose carvedilol bid and lisinopril 5 mg daily, with plan t o continue to increase carvedilol as tolerated., and I had increased carvedilol up to 25 m g twice daily. Her current and previous testing and procedures are detailed below. When I saw her last on November 23, 2017, she was doing well on carvedilol 25 mg twice a day , but had missed taking her medications for 3 to 4 days prior to seeing me. I increased her atorvastatin to 20 mg, and the plan was to see her back in January in [place], as she was moving to [place], and gave her counseling on staying well-hydrated, and eating heart heal thy diet. She reports today that her low income housing plans for [place] were not approved, so she has remained in [place]. She was seen in the emergency room on February 07 for flank pain, and ER notes reviewed.S he does not remember if followed up with PCP or anyone else after emergency room visit, but no further problems. Today, she reports she again has not taken some of her antihypertensives prior to seein candace roberts, as she had run out of medications, and has developed some left sided chest pain , with some diaphoresis, and some nausea . She also has ongoing shortness of breath with exertion. She reports she has had previous episodes of more transient left symptomatic chest pain paige or to this, but has not gone to the emergency room for angiogram for further evaluation, and does not have any sublingual nitro at home. She denies any palpitations, dizziness, or syncope. She has intermittent pedal edema, stephanie cially when she has been on her feet all day, and still has ongoing claudication. She continues to smoke approximately 6 cigarettes/day, and is not sure if nicotine patches will help her given the low amount she smokes, but is also not sure if she will be able to q uit, so she recognizes it is seriously impacting her health. She reports she continues to tolerate carvedilol 25 mg twice daily, and has been taking all of her other medications as prescribed until she ran out of refills last week. She has gone back to drinking Pepsi and sweet tea, and still eats high sodium foods as she likes salt. She also continues to work at [employer]. She never followed up on my referral for sleep apnea, as she states she will never wear a C PAP, as her mother had one, and she does not think she could ever tolerate it. REVIEW OF SYSTEMS: Negative except for pertinent items noted in HPI. Constitutional: Reports mild fatigue. Denies unexplained weight loss. Appetite is good. Weight has increased 10 lbs Since 07/2017 when weighed 173 lb. Denies night sweats fevers or chills HENT: Denies nosebleeds. Denies hearing problems. Denies dysphagia Eyes: . Denies visual disturbance or double vision. Respiratory/Sleep:: symptomatic for sleep apnea, missed Sleep study . Denies cough and s hortness of breath. Denies hemoptysis or excessive sputum production. Denies snoring, ortho pnea, PND. Cardiovascular: Reports pedal edema controlled with Lasix, new left-sided chest pain, see HPI, reports rare palpitations., Denies history of rheumatic fever. Reports claudication Able to walks 0.5 miles, right greater than left. Gastrointestinal: Reports history of IBS , with intermittent abdominal pains, nausea vomiti ng and diarrhea, Hx GERD Denies PUD Denies blood in stool. Genitourinary: Reports intermittent hematuria, retroperitoneal ultrasound 10/14/2017 showed n ormal-size kidneys, and no hydronephrosis, no mass, no shadowing calculi, smooth bladder wal ls with no filling defects or masses, or abnormality Musculoskeletal: c/o poly arthralgia to joints, reports weak back uses back brace at work. Denies myalgias Skin: Denies color change. Denies rash or lesions Neurological: Reports frequent migraines, rare episodes of dizziness lightheadedness,improv ed tingling paresthesia to her hands, arms, and legs. c/o sciatica Denies history of stroke /Transient ischemic attack.Denies history of seizures. Denies syncope Hematological/Oncology Does not bruise/bleed easily. Denies history of cancer Endocrine: history of borderline diabetes. Denies thyroid disease. Denies excessive thir st or hunger. Psychiatric/Behavioral: Reports depression/anxiety . denies any history of other psychiatr ic illness. Vaccines: Not current flu vaccine. Current on pneumonia vaccine. Habits/Social : current smoker 1/2 ppd x 45 years smoking, started smoking regularly when 8 years old Denies EtOH use. Reports still drinking Pepsi and iced tea 11/2017 Denies rec reational or illicit drug use. Exercises with active job and tolerates. Caregiver for mot her 02/2017 w/ COPD, dementia, HF, diabetes . Her child 2007, lives in [place] , Moved from [place] in [facility] 1 year ago. Looks after grandchild, works at [employer] in [facility]. Outpatient Medications Prior to Visit Medication Sig Dispense Refill atorvaSTATin (LIPITOR) 20 mg tablet take 1 tablet by mouth every evening 90 tablet 0 carvedilol (COREG) 25 mg tablet take 1 tablet by mouth twice a day with meals 180 table t 0 furosemide (LASIX) 20 mg tablet take 1 tablet by mouth every morning 90 tablet 0 gabapentin (NEURONTIN) 300 mg capsule Take 300 mg by mouth 3 (three) times daily. 0 ibuprofen (ADVIL, MOTRIN) 200 mg tablet Take 200 mg by mouth every 6 hours as needed fo r Pain. Take four tablets by mouth as needed lisinopril (PRINIVIL, ZESTRIL) 5 mg tablet take 1 tablet by mouth once daily 90 tablet 0 loratadine (ALLERGY) 10 mg tablet Take 10 mg by mouth Daily. potassium chloride (KLOR-CON M20) 20 mEq ER tablet Take 20 mEq by mouth daily. 0 No facility-administered medications prior to visit. PHYSICAL EXAM: Wt Readings from Last 3 Encounters: 03/28/19 83.1 kg (183 lb 4.8 oz) 04/21/17 78.5 kg (173 lb 1.6 oz) Temp Readings from Last 3 Encounters: No data found for Temp BP Readings from Last 3 Encounters: 03/28/19 108/66 04/21/17 126/74 Pulse Readings from Last 3 Encounters: 03/28/19 65 04/21/17 74 Vital signs: 11/23/2017: WT: 179 LB. BP 132/80. HR 70. Vital signs: 09/28/2017: WT 171 LB. BP 124/58. HR 80. Vital signs: 08/04/2017: WT 173 LB. BP 118/82. HR: 84 GENERAL: Well developed, well nourished, in no distress, appears tired. Appears approximat paloma stated age. HEENT: Normocephalic, atraumatic. EYES: PERRL, EOM normal. MOUTH: Oral mucosae moist, dentition adequate, no lesions noted NECK: No JVD, lymphadenopathy, thyromegaly, bruits. Carotid pulses are 2+ bilaterally LUNGS/CHEST: Clear bilaterally, with no rales, rhonchi or wheezing noted, respirations unl abored HEART: Nondisplaced PMI, regular rate and rhythm, S1, S2 normal. 2/6 murmur LLB towards ap ex. No rubs or gallops noted. ABDOMEN: Soft, nontender, no organomegaly, masses or bruits. Bowel sounds are normal in a ll 4 quadrants. The abdominal aortic pulsation is not palpable. EXTREMITIES: mild bilateral pedal edema. Radial pulses 2+ bilaterally. Femoral pulses ar e 2+ bilaterally without bruits. DP and PT pulses are 2+ bilaterally. No clubbing. SKIN: Warm and dry, capillary refill is normal, no lesions. NEUROLOGIC: Awake, alert and oriented x 3. No focal motor or sensory deficits. PSYCHIATRIC: Appropriate, affect appears normal DATA: Blood tests: No results found for: WBC, RBC, HGB, HCT, PLT Lab Results Component Value Date NA 138 07/03/2017 K 3.9 07/03/2017 CL 106 07/03/2017 CO2 24 07/03/2017 ANIONGAP 11.9 07/03/2017 GLUF 99 07/03/2017 BUN 13 07/03/2017 BCR 19.4 07/03/2017 EGFR 92 07/03/2017 Lab Results Component Value Date GLUF 99 07/03/2017 No results found for: BNP, TSH, CRP No results found for: TOTEPI CARDIAC PROCEDURES/IMAGING Cardiac Cath (11/27/15): Normal coronary arteries, nonischemic dilated cardiomyopathy Lexiscan Cardiolite stress test (11/07/15): No ST segment changes, fixed anterior, anterosep mateo and apical defect, with hypokinesis on stress images - false positive result ECHO Last Echo (04/28/17): EF 45-50%, grade 1 diastolic dysfunction, mild LAE, mild MR, TR Echo (11/02/15): EF 46%, with mild global hypokinesis, diastolic dysfunction, mild-moderate MR EKG/EVENT MONITOR 2 week Event Recorder (04/28/17): sinus rhythm throughout, and a rate-related BBB intermitt ently. No arrhythmias were noted. 3 episodes of reported symptoms corresponded to sinus rhythm. EK04/21/2017 Normal sinus rhythm, rate 69, non diagnostic inferolateral Q waves, marked T-wave inversions V1-V4, possibly due to ischemia. QTC 480 ms. No previous tracings [facility] for comparison. No evidence of the left bundle branch block noted by history EK03/28/2019: Normal sinus rhythm, stable left bundle branch block. Rate 64 bpm, ID 176 ms, QRS 146 ms, QTC 484 ms, tracing personally reviewed by pr LABS Labs: 07/03/2017: CMP: Gl 99, BUN 13, Cr 0.67, alb 4.3, Tbil 0.5, Alk Phos 81, ALT 13, AST 17, Na 138, K 3.9, CL 106, GFR 92. Labs: 10/21/2017: Lipids: ( Lipitor 20 mg )Cholesterol 170, triglycerides 180, HDL 40, LDL 1 02, VLDL 36, ratio 4.5, non-HDL cholesterol 138. CMP: Sodium 140, potassium 4.6, chloride 1 05, glucose 107, BUN 18, creatinine 0.68, GFR 91, AST 15, ALT 17, alk phos 93, total bilirub in 0.3, albumin 4. Thyroid: TSH 3.65. CBC: WBC 9.3, hemoglobin 13.7, hematocrit 41, platel ets 307. Labs: 02/07/2019: ( [facility] ER) CBC: WBC 7.6, RBC 4.36, hemoglobin 13.1, hematocrit 38.3, platele ts 269. CMP: Glucose 99, BUN 11, creatinine 0.71, GFR 86 sodium 138, potassium 3.8, chlorid e 105, albumin 3.9, total bili 0.3, AST 16, ALT 17, alk phos 78, lipase 18 ASSESSMENT & PLAN: She was here today as overdue for annual follow-up and needs medication refills. She has problems as detailed below. Her EKG performed in the clinic today shows her left bundle branch is back, though heart rate well controlled at 64 bpm, blood pressure not elevated today, and labs performed in the emergency room in February show a normal CBC, CMP. As discussed in HPI, she has not been taking her lisinopril and taking her carvedilol in termittently due to running out of medication refills, and has been experiencing increased l eft-sided chest pain with some diaphoresis, and occasional nausea. She also has ongoing dys pnea with exertion, as well as claudication. I discussed with her today that some of her symptoms may be related to hypertension, bu t I am concerned as her symptoms seem much more pronounced than when I saw her last, and I h ave ordered her a nuclear stress test, as with her dyspnea and claudication, she cannot comp lete a treadmill test. I have also ordered her an updated echo to evaluate her cardiomyopathy, as well as heart fa ilure, with ongoing pedal edema, murmur, and shortness of breath.. I also discussed with her that her smoking with a huge risk factor for ischemic heart d isease, stroke, and increased peripheral vascular disease, as well as COPD and cancer, and h ad strongly encouraged her to quit, and she only smokes 6 cigarettes/day. She is not sure if she can quit, so I have encouraged her to try reducing her cigarettes by 1 cigarette/day every 2 weeks. I made no changes to her cardiac medications today, except for ordering her sublingual nitr o, which I have encouraged her to take if she has further episodes of chest pain, and review ed indications, dosing and side effects She should continue atorvastatin 20 mg nightly for hyperlipidemia, carvedilol 25 mg twice d aily for heart failure and cardiomyopathy, Lasix 20 mg daily for pedal edema and heart failu re, lisinopril 5 mg daily for cardiomyopathy and heart failure, and potassium 20 mEq daily o f daily. I have also encouraged her not to use Sudafed, as it increases blood pressure and vasoconst riction. I have also cautioned her against long-term use of NSAIDs. I sent in a 90 day supply of all of her cardiac medications refills for one year I have also encouraged her to drink 48 ounces of water daily and not Gatorade, which is v andrew high sodium and sugar. I will see her back in 6 weeks to follow-up on her stress test and Echo. I have also ordered an updated CMP lipid panel, with copies to be sent to her PCP, Dolores sebastian. 1. Cardiomyopathy, dilated, nonischemic (HCC) 2. Chronic systolic CHF (congestive heart failure) (HCC) 3. LBBB (left bundle branch block) 4. Mild mitral regurgitation 5. Dyslipidemia 6. Palpitations 7. Non-cardiac chest pain 8. Dyspnea, unspecified type 9. Intermittent claudication (HCC) 10. Obstructive sleep apnea syndrome in adult 11. Pre-diabetes 12. Current smoker 13. Precordial pain Orders Placed This Encounter Procedures Comprehensive Metabolic Panel Lipid Panel ECG 12 lead ECHO Complete NM Nuclear Stress Test (Vasodilator) The following portions of the patient's history were personally reviewed by me and updated as appropriate: EKG tracings, other specialty provider and PCP notes,any Hospital admission and discharge summaries, any ER records , current and previous cardiac testing and procedure reports and d cheikh, medication bottles NOT brought to visit today, but medication list and pharmacy disp ense report personally reviewed by me. Allergies, current medications.labs Family history, past medical history, past social history, past surgical history. Problem list. This encounter was dictated with voice recognition software and may contain inadvertent rec ognition errors. Mj DIAZ [facility] Cardiology 03/28/2019 ETTdocuap ented in this encounter Plan of Treatment +--------+---------+ + + + | Date | Type | Specialty | Care Team | Description | +--------+---------+ + + + | 11/14/ | Office | Cardiology | Harjinder Walker, | | | 2019 | Visit | | MD [address] | | | | | | [place], | | | | | | [place] [address] | | | | | | [phone] | | | | | | | | +--------+---------+ + + + + + +--------+ + + | Name | Type | Priori | Associated Diagnoses | Order Schedule | | | | ty | | | + + +--------+ + + | ECHO Complete | Echocardiog | Routin | Cardiomyopathy, | Expected: | | | [place] | e | dilated, nonischemic | 03/28/2019, Expires: | | | | | (HCC) Chronic | 03/28/2020 | | | | | systolic CHF | | | | | | (congestive heart | | | | | | failure) ([facility]) LBBB | | | | | | (left bundle branch | | | | | | block) Mild mitral | | | | | | regurgitation | | | | | | Palpitations | | + + +--------+ + + | NM Nuclear Stress | Cardiac | Routin | Cardiomyopathy, | Expected: | | Test (Vasodilator) | Nuclear | e | dilated, nonischemic | 03/28/2019, Expires: | | | Medicine | | (HCC) Chronic | 03/28/2020 | | | | | systolic CHF | | | | | | (congestive heart | | | | | | failure) ([facility]) LBBB | | | | | | (left bundle branch | | | | | | block) | | | | | | Dyslipidemia | | | | | | Palpitations | | | | | | Dyspnea, unspecified | | | | | | type Pre-diabetes | | | | | | Current smoker | | | | | | Precordial pain | | + + +--------+ + + | Comprehensive | Lab | Routin | Dyslipidemia | Expected: | | Metabolic Panel | | e | Pre-diabetes | 03/28/2019, Expires: | | | | | | 03/28/2020 | + + +--------+ + + | Lipid Panel | Lab | Routin | Dyslipidemia | Expected: | | | | e | | 03/28/2019, Expires: | | | | | | 03/28/2020 | + + +--------+ + + documented as of this encounter [...] the | | | | PDT | ([facility]) Chronic | results section. | | | | | systolic CHF | | | | | | (congestive heart | | | | | | failure) ([facility]) LBBB | | | | | | [...] | LABS - EXTERNAL SCAN | | 02/07/2019 | | Results for this | | | | 12:00 AM | | procedure are in the | | | | PDT | | results section. | + +--------+ + + + documented in this encounter Results ECG 12 lead (03/28/2019 10:30 AM PDT) [...] INTERPRETAT | Please refer to | | ROBIN MUSE | | | ION TEXT | Providers office visit | | | | | | note for Providers | | | | | | Interpretation.Confirmed | | | | | | by [facility] [place] Read Only, | | | | | | ICA Marii ([id number]), | | | | | | editor dictionary Salazar Bryan | | | | | | ([id number]) on 03/28/2019 | | | | | [...] | | | + +---------+ + + LABS - EXTERNAL SCAN (02/07/2019 12:00 AM PDT) + + + | Narrative | Performed At | + + + | Ordered by an | | | unspecified provider. | | + + + documented in this encounter Visit Diagnoses + + | Diagnosis | + + | Cardiomyopathy, dilated, nonischemic (HCC) - Primary Other primary cardiomyopathies | + + | Chronic systolic CHF (congestive heart failure) (HCC) | + + | LBBB (left bundle branch block) Other left bundle branch block | + + | Mild mitral regurgitation Mitral valve disorders | + + | Dyslipidemia Other and unspecified hyperlipidemia | + + | Palpitations | + + | Non-cardiac chest pain Other chest pain | + + | Dyspnea, unspecified type | + + | Intermittent claudication (HCC) Peripheral vascular disease, unspecified | + + | Obstructive sleep apnea syndrome in adult Obstructive sleep apnea (adult) (pediatric) | + + | Pre-diabetes Other abnormal glucose | + + | Current smoker Tobacco use disorder | + + | Precordial pain | + + documented in this encounter
--- OUTSIDE RECORDS SUMMARY | ~2019-06-13 | XMS | Clinical Summary ---
Demographics + + + | Address | [address] | | | [place] [address] | + + + | Home Phone | | + + + | Preferred Language | Unknown | + + + | Marital Status | | + + + | Bahai Affiliation | Unknown | + + + | Race | Unknown | + + + | Ethnic Group | Unknown | + + + Author + + + | Author | [facility] | | | and [place] | + + + | Organization | [facility] | | | and Tyronana [...] Team Providers + +------+ + | Care Road Grader Name | Role | Phone | + [...] | | | | | | claudication ([facility]); | | | | | | Pre-diabetes; [...] | | 2018 | Visit | | APNDA Cobos | dilated, nonischemic | | | | | | ([facility]) (Primary Dx); | | | | | | Chronic systolic | | | | | | CHF (congestive | | | | | | heart failure) | | | | | | ([facility]); LBBB (left | | | | | [...] | | | | | | claudication ([facility]); | | | | | | Obstructive [...] +---+---+---+ + + | 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 | | | | | systolic CHF | | | | | | (congestive heart | | | | | | failure) ([facility]) LBBB | | | | | | [...] | | | | | by [facility] [place] Read Only, | | | | | | [facility] ([id number]), | | | | | | map editor Salazar Bryan | | | | [...] | [employer] | [employer] | [id number] | | [phone] | | [employer] | | MEDICAID HMO [...] | | al/Fam | | 1966 | [phone] | [place] [address] | | | imelda | | | 1 (Home) | | + +--------+ +--------+ + + Advance Directives + + + + + | Type | Date Recorded | Patient | Explanation | | | | Commissioning Manager | | + + + + + | Power of | | | | | Urologic Nurse | | | | + + + + + | Advance | | | | | Directive | | | | + + + + +
--- OUTSIDE RECORDS SUMMARY | ~2019-06-13 | XMS | Encounter Summary ---
Demographics + + + | Address | [address] | | | [place] [address] | + + + | Home Phone | | + + + | Preferred Language | Unknown | + + + | Marital Status | | + + + | Buddhist Affiliation | Unknown | + + + | Race | Unknown | + + + | Ethnic Group | Unknown | + + + Author + + + | Author | [facility] | | | and [place] | + + + | Organization | [facility] | | | and [...] Team Providers + +------+ + | Care Emc Storage Architect Name | Role | Phone | + +------+ + | Dolores Mayorga | PCP | | + +------+ + Encounter Details +--------+ + + + + | Date | Type | Department | Care Team | Description | +--------+ + + + + | 07/03/ | Orders Only | [facility] | Harjinder Walker, | | | 2018 | | CARDIOLOGY TODD | [address] | | | | | [address] | [place], | | | | | [place] | [place] [address] | | | | | [address] | [phone] | | | | | [phone] | | | +--------+ + + + [...] | | | | | | [place] [address] | | | | | | [phone] | | | | | | | [...]
--- OUTSIDE RECORDS SUMMARY | ~2019-06-13 | XMS | Encounter Summary ---
Demographics + + + | Address | [address] | | | [place] [address] | + + + | Home Phone | | + + + | Preferred Language | Unknown | + + + | Marital Status | | + + + | Sabianism Affiliation | Unknown | + + + | Race | Unknown | + + + | Ethnic Group | Unknown | + + + Author + + + | Author | [facility] | | | and [place] | + + + | Organization | [facility] | | | and [place] [...] Team Providers + +------+ + | Care Flanging Machine Operator Name | Role | Phone | + +------+ + | Dolores Mayorga | PCP | | + +------+ + Encounter Details +--------+ + + + + | Date | Type | Department | Care Team | Description | +--------+ + + + + | 11/22/ | Orders Only | [facility] | Suki Emery | | | 2019 | | CARDIOLOGY [place] | [address] | | | | | [address] | [place] | | | | | [address] | [place] [address] | | | | | [place] | [phone] | | | | | [address] | | | | | | [phone] | | | +--------+ + + + + Social History + +-------+ +--------+------+ | Tobacco Use | Types | Packs/Day | Years | Date | | | | | Used | | + +-------+ +--------+------+ | Current Every Day | | 0.5 | | | | Smoker | | | | | + +-------+ +--------+------+ + + | 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
--- OUTSIDE RECORDS SUMMARY | ~2019-06-13 | XMS | Clinical Summary ---
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
--- OUTSIDE RECORDS SUMMARY | ~2019-06-13 | XMS | Encounter Summary ---
Demographics + + + | Address | [address] | | | [place] [address] | + + + | Home Phone | | + + + | Preferred Language | Unknown | + + + | Marital Status | | + + + | Voodoo Affiliation | Unknown | + + + | Race | Unknown | + + + | Ethnic Group | Unknown | + + + Author + + + | Author | [facility] | | | and [place]ron[place] | + + + | Organization | [facility] | | | and [place]ronana [...] Team Providers + +------+ + | Care Lock Tender Name | Role | Phone | + [...] | | | | Suki Cobos, | [facility] | | | | | Cardiomyopat | [address] | [address] | | | | | hy, dilated, | [address] | [place] | | | | | nonischemic | [place] | [place] | | | | | (HCC) | [place], [place] | [address] | | | | | Chronic | [address] | Phone: | | | | | systolic CHF | Phone: | [phone] | | | | | (congestive | [phone] | Fax: | | | | | heart | Fax: | [phone] | | | | | failure) | [phone] | | | | | | (HCC) [...] | | | | | | [facility] | | | | | Cardiomyopat | [address] | [address] | | | | | hy, dilated, | [address] | [place] | | | | | nonischemic | [place] F | [place], [place] | | | | | (HCC) | [place] | [address] | | | | | Chronic | [address] | Phone: | | | | | systolic CHF | Phone: | [phone] | | | | | (congestive | [phone] | Fax: | | | | | heart | Fax: | [phone] | | | | | failure) | [phone] | | | | | | ([facility]) LBBB | | | | | [...] + + | 03/28/ | Office | [facility] | Rupert Suki | Cardiomyopathy, | | 2019 | Visit | CARDIOLOGY [place] | [address] | dilated, nonischemic | | | | [address] | [place] | ([facility]) (Primary Dx); | | | | [address] | [place] [address] | Chronic systolic | | | | [place] | [phone] | CHF (congestive | | | | [address] | | heart failure) | | | | [phone] | | ([facility]); LBBB (left | | | | [...] | | | | | | claudication ([facility]); | | | | | | [...] + + | 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 She reports today that her low income housing plans for [place] were not approved, so she has remained in [place]. She was seen in the emergency room [...] salt. She also continues to work at [employer]. She never followed up on my referral [...] diabetes . Her child 2007, lives in [place] , Moved from [place] in [facility] 1 year ago. Looks after grandchild, works at [employer] in [facility]. Outpatient Medications Prior to Visit Medication [...] ischemia. QTC 480 ms. [facility]. No evidence of the left bundle branch block noted by history EK03/28/2019: Normal sinus rhythm, stable left bundle branch block. Rate 64 bpm, NY 176 ms, QRS 146 ms, QTC 484 ms, tracing personally reviewed by id LABS Labs: 07/03/2017: CMP: Gl 99, BUN [...] 41, platel ets 307. Labs: 02/07/2019: ( [facility]) CBC: WBC 7.6, RBC 4.36, hemoglobin [...] contain inadvertent rec ognition errors. Mj DIAZ [facility] Cardiology 03/28/2019 ETTdocuap ented in this encounter [...] | | | | | | [place] [address] | | | | | | [phone] | | | | | | | | +--------+---------+ + + + + + +--------+ + + | Name | Type | Priori | Associated Diagnoses | Order Schedule | | | | ty | | | + + +--------+ + + | ECHO Complete | Echocardiog | Routin | Cardiomyopathy, | Expected: | | | karon | e | dilated, nonischemic | 03/28/2019, Expires: | | | | | (HCC) Chronic | 03/28/2020 | | | | | systolic CHF | | | | | | (congestive heart | | | | | | failure) ([facility]) LBBB | | | | | [...] | | | | | | failure) ([facility]) LBBB | | | | | [...] the | | | | PDT | ([facility]) Chronic | results section. | | | | | systolic CHF | | | | | | (congestive heart | | | | | | failure) ([facility]) LBBB | | | | | [...] | | | | | by [facility] [place] Read Only, | | | | | | [facility]i ([id number]), | | | | | | graphics editor Salazar Bryan | | | | | | ([phone]) on 03/28/2019 | | | | | [...]
--- OUTSIDE RECORDS SUMMARY | ~2019-06-13 | XMS | Encounter Summary ---
Demographics + + + | Address | [address] | | | [place] [address] | + + + | Home Phone | | + + + | Preferred Language | Unknown | + + + | Marital Status | | + + + | Mandaeism Affiliation | Unknown | + + + | Race | Unknown | + + + | Ethnic Group | Unknown | + + + Author + + + | Author | [facility] | | | and [place] | + + + | Organization | [facility] | | | and [...] Team Providers + +------+ + | Care Route Service Representative Name | Role | Phone | + +------+ + | Dolores Mayorga | PCP | | + +------+ + Encounter Details +--------+ + + + + | Date | Type | Department | Care Team | Description | +--------+ + + + + | 06/30/ | Orders Only | [facility] | Conversion | | | 2017 | | CONVERSION DEP [address] | Transaction, | | | | | [address] | Provider Unknown | | | | | [place] | | | | | | [address] | (Fax) | | | | | [phone] | | | +--------+ + + + [...] DR | | | | | | [place], | | | | | | [place] [address] | | | | | | [phone] | | | | | | | | +--------+---------+ + + + documented as of this encounter Visit Diagnoses Not on filedocumented in this encounter"
--- OUTSIDE RECORDS SUMMARY | ~2019-06-13 | XMS | Encounter Summary ---
Demographics + + + | Address | [address] | | | [place] [address] | + + + | Home Phone | | + + + | Preferred Language | Unknown | + + + | Marital Status | | + + + | Confucianist Affiliation | Unknown | + + + | Race | Unknown | + + + | Ethnic Group | Unknown | + + + Author + + + | Author | [facility] | | | and [place] | + + + | Organization | [facility] | | | and [...] Team Providers + +------+ + | Care Fabrication And Layout Craftsman Name | Role | Phone | + [...] [place] | | | | | | [address] | (Fax) | | | | | [phone] | | | +--------+ + + + [...] | | | | | | [place] [address] | | | | | | [phone] | | | | | | | | +--------+---------+ + + + documented as of this encounter Visit Diagnoses Not on filedocumented in this encounter"
--- OUTSIDE RECORDS SUMMARY | ~2019-06-13 | XMS | Encounter Summary ---
Demographics + + + | Address | [address] | | | [place] [address] | + + + | Home Phone | | + + + | Preferred Language | Unknown | + + + | Marital Status | | + + + | Worship Affiliation | Unknown | + + + | Race | Unknown | + + + | Ethnic Group | Unknown | + + + Author + + + | Author | [facility] | | | and [place] | + + + | Organization | [facility] | | | and [...] Team Providers + +------+ + | Care Fire Prevention Research Engineer Name | Role | Phone | + +------+ + | Dolores Mayorga | PCP | | + +------+ + Encounter Details +--------+ + + + + | Date | Type | Department | Care Team | Description | +--------+ + + + + | 11/22/ | Orders Only | [facility] | Suki Emery | | | 2019 | | CARDIOLOGY [place] | [address] | | | | | [address] | [address] [address] | | | | | [address] | [place] [address] | | | | | [place] | [phone] | | | | | [address] | | | | | | [phone] | | | +--------+ + + + + Social History + +-------+ +--------+------+ | Tobacco Use | Types | Packs/Day | Years | Date | | | | | Used | | + +-------+ +--------+------+ | Current Every Day | | 0.5 | | | | Smoker | | | | | + +-------+ +--------+------+ + + | 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
--- OUTSIDE RECORDS SUMMARY | ~2019-06-13 | XMS | Encounter Summary ---
Demographics + + + | Address | [address] | | | [place] [address] | + + + | Home Phone | | + + + | Preferred Language | Unknown | + + + | Marital Status | | + + + | Mandaeism Affiliation | Unknown | + + + | Race | Unknown | + + + | Ethnic Group | Unknown | + + + Author + + + | Author | [facility] | | | and [place] | + + + | Organization | [facility] | | | and [place] [...] Team Providers + +------+ + | Care Auto Body Mechanic Apprentice Name | Role | Phone | + +------+ + | Dolores Mayorga | PCP | | + +------+ + Reason for Visit + + + | Reason | Comments | + + + | Medication Question | | + + + Encounter Details +--------+ + + + + | Date | Type | Department | Care Team | Description | +--------+ + + + + | 06/13/ | Telephone | [facility] | Suki Emery | Medication Question | | 2020 | | CARDIOLOGY [place] | [address] | | | | | [address] | [address] | | | | | [address] | [place] [address] | | | | | [place] | [phone] | | | | | [address] | | | | | | [phone] | | | +--------+ + + + + Social History + + [...] +---+---+---+ + + | 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
--- OUTSIDE RECORDS SUMMARY | ~2019-06-13 | XMS | Encounter Summary ---
Demographics + + + | Address | [address] | | | [place] [address] | + + + | Home Phone | | + + + | Preferred Language | Unknown | + + + | Marital Status | | + + + | Caodaism Affiliation | Unknown | + + + | Race | Unknown | + + + | Ethnic Group | Unknown | + + + Author + + + | Author | [facility] | | | and [place] | + + + | Organization | [facility] | | [...] Team Providers + +------+ + | Care Director Of Government Sales Name | Role | Phone | + +------+ + | Dolores Mayorga | PCP | | + +------+ + Reason for Visit + + + | Reason | Comments | + + + | Follow-up, Office | 6 week | | Visit | | + + + Encounter Details +--------+---------+ + + + | Date | Type | Department | Care Team | Description | +--------+---------+ + + + | 05/09/ | Office | [facility] | Suki Emery | Cardiomyopathy, | | 2019 | Visit | CARDIOLOGY [place] | [address] | dilated, nonischemic | | | | [address] | [address] | ([facility]) (Primary Dx); | | | | [address] | [place] [address] | Precordial pain; | | | | [place], [place] | [phone] | LBBB (left bundle | | | | [id number] | | branch block); | | | | [phone] | | Chronic systolic CHF | | | | | | (congestive heart | | | | | | failure) ([facility]); Mild | | | | | | [...] | | | | | | claudication ([facility]); | | | | | | Pre-diabetes; | | | | | | Current smoker | +--------+---------+ + + + Social History [...] +---+---+---+ + + | 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 Walker back in 6 months documented in this encounter Progress Notes Suki Emery FNP - 05/09/2019 9:30 AM PSTFormatting of this note might be differe nt from the original. Date of visit: 05/09/2019 Primary Care Physician: TENZIN Lara CHIEF COMPLAINT: Chief Complaint Patient presents with Follow-up, Office Visit 6 week HISTORY OF PRESENT ILLNESS: Ms Mary Ann Rolon is a 53 old woman who is here today to follow up on Echo, lab, and s tress test results. She is a patient of Dr. Walker and last seen by him 08/04/2017 She has a history of chest pain and palpitations, history of previous false positive str ess test,as 11/2015 w/ angiogram showed normal coronary arteries , nonischemic dilated cardio myopathy with EF 45-50 percent per 04/2017 Echo, history of left bundle branch block, caroline l regurgitation, dyslipidemia, mild claudication and current smoker. Dr. Walker had started her on low dose carvedilol bid and lisinopril 5 mg daily, with plan t o continue to increase carvedilol as tolerated., and I had increased carvedilol up to 25 m g twice daily. Her current and previous testing and procedures are detailed below. When I saw her last on 03/28/2019 as she was overdue for follow up and ordered her a str ess test for left sided chest pain with nausea with return of LBBB, , Echo to evaluate her c ardiomyopathy as carvedilol dose now optimized, and updated CMP , and lipid panel. I also ag yovany encouraged her to quit smoking,and to take her medications on a daily basis, as has a hi story of taking her medications intermittently. She reports today her left-sided chest pain has resolved since she has been back on her medications full-time, and she has had only occasional lightheadedness, usually related to w orking long shifts at [employer], especially with black Thursday, which is also given her some mi ld increase in her pedal edema. She denies any increased palpitations, dyspnea, or syncope, is complaining of increased leg cramps which she describes as" charley horses" the last week, which also may be related to her work, as she reports she walks a lot on a hard concrete floor. She denies any signs or symptoms of stroke or TIA, or any emergency room visits since last seen She continues to smoke approximately 6 cigarettes/day, [...] all of her other medications as prescribed since I sent in refills When I saw her last . She has been trying to make some positive changes by drinking more water, and now drinki ng just black coffee, and not sweetened tea, but still intermittently drinking Pepsi, though less than previously She also continues to work at [employer]. She reported Previously that her low income housing plans for [place] were not appro ada, so she has remained in [place]. She never followed up on my referral for sleep apnea, as she states she will never wear a CPAP, as her mother had one, and she does not think she could ever tolerate it. She brought her medication bottles to the clinic today, and personally reviewed by me. REVIEW OF SYSTEMS: Negative except for pertinent [...] production. Denies snoring, ortho pnea, PND. Cardiovascular: Left sided chest pain resolved. Reports pedal edema controlled with Lasix. reports rare palpitations., Denies history of rheumatic fever. Reports claudication Abl e to walks 0.5 miles, right greater than [...] diabetes . Her child 2007, lives in [place] , Moved from [place] [facility] 1 year ago. Looks after grandchild, works at [employer] in [facility]. Outpatient Medications Prior to Visit Medication Sig Dispense Refill atorvaSTATin (LIPITOR) 20 mg tablet Take 1 tablet by mouth nightly. 90 tablet 3 carvedilol (COREG) 25 mg tablet Take 1 tablet by mouth 2 times daily (with breakfast & dinner). 90 tablet 3 fluticasone (FLONASE) 50 mcg/nasal spray 1 spray by Nasal route Daily. furosemide (LASIX) 20 mg tablet Take 1 tablet by mouth every morning. (Patient taking d ifferently: Take 20 mg by mouth Daily.) 90 tablet 3 gabapentin (NEURONTIN) 300 mg capsule Take 300 mg by mouth 3 (three) times daily. 0 ibuprofen (ADVIL, MOTRIN) 200 mg tablet Take 200 mg by mouth every 6 hours as needed fo r Pain. Take four tablets by mouth as needed lisinopril (PRINIVIL, ZESTRIL) 5 mg tablet Take 1 tablet by mouth nightly. 90 tablet 3 loratadine (ALLERGY) 10 mg tablet Take 10 mg by mouth Daily. nitroglycerin (NITROSTAT) 0.[address] 1 tablet under the tongue every 5 emmy chaz as needed for Chest pain. 25 tablet 1 potassium chloride (KLOR-CON M20) 20 mEq ER tablet Take 1 tablet by mouth Daily. 90 tab let 3 No facility-administered medications prior to visit. PHYSICAL EXAM: Wt Readings from Last 3 Encounters: 05/09/19 81.6 kg (179 lb 12.8 oz) 03/28/19 83.1 kg (183 lb 4.8 oz) 04/21/17 78.5 kg (173 lb 1.6 oz) Temp Readings from Last 3 Encounters: No data found for Temp BP Readings from Last 3 Encounters: 05/09/19 106/74 03/28/19 108/66 04/21/17 126/74 Pulse Readings from Last 3 Encounters: 05/09/19 69 03/28/19 65 04/21/17 74 Vital signs: 11/23/2017: [...] (11/27/15): Normal coronary arteries, nonischemic dilated cardiomyopathy Last Lexiscan Cardiolite stress test: 04/20/2019:[facility]: EKG: Resting EKG demonstrates normal sinus rhythm with left bundle branch block. Resting blood pressure 143/73. Heart rate 93 b pm. Resting blood pressure 143/73. No chest pain with Lexiscan infusion.Nondiagnostic due to underlying left bundle branch block. Imaging SPECT images at rest and stress well match ed with no evidence of ischemia or infarct. TCD score normal. EF 47%. Bull's eyes image s hows normal muscle thickening. Cine images display mild lateral wall dyskinesia Lexiscan Cardiolite stress test (11/07/15): No ST segment changes, fixed anterior, anterosept al and apical defect, with hypokinesis on stress images - false positive result ECHO Last echo:04/11/2019: ( [facility]): EF 45-50%. LV normal in size and wall thickness. Abnormal s eptal motion consistent with left bundle branch block. Normal diastolic function. RV annabel l in size and function. RA WNL, LA WNL. Aortic valve trileaflet, no stenosis or regurgitat ion. Mitral valve anterior leaflet mildly thickened, no evidence of prolapse or stenosis, m oderate MR. Moderate TR with velocity 2.6 m/s with an estimated PASP 27 mmHg, RVSP estimate d at 30 mmHg, no pulmonary hypertension. Pulmonic valve normal with trace regurgitation.Sin us of Valsalva through ascending aorta of normal caliber Echo (04/28/17): EF 45-50%, grade 1 diastolic [...] ischemia. QTC 480 ms. No previous tracings avai lable for comparison. No evidence of the left bundle branch block noted by history EK03/28/2019: Normal sinus rhythm, stable left bundle branch block. Rate 64 bpm, UT 176 ms, QRS 146 ms, QTC 484 ms, tracing personally reviewed by al LABS Labs: 07/03/2017: CMP: Gl 99, BUN [...] 41, platel ets 307. Labs: 02/07/2019: ( [facility] ER) CBC: WBC 7.6, RBC 4.36, hemoglobin 13.1, hematocrit 38.3, platele ts 269. CMP: Glucose 99, BUN 11, creatinine 0.71, GFR 86 sodium 138, potassium 3.8, chlorid e 105, albumin 3.9, total bili 0.3, AST 16, ALT 17, alk phos 78, lipase 18 Labs: 04/20/2019: Lipids: ( atorvastatin 20 mg) Cholesterol 138, triglycerides 117, HDL 31, LDL 84. CMP: Sodium 138, potassium 4.2, chloride 107, glucose 114, BUN 21, creatinine 0.65 , AST 18, ALT 18, alk phos 71, total bili 0.5, GFR 95, albumin 4.2 ASSESSMENT & PLAN: She was here today upon the results of her echo, stress test, and labs. She has problems as detailed below. Her Echo performed in as detailed above and shows a stable EF of 45-50%, normal diastolic function, RV normal in size and function, slight increased to mitral regurgitation is now m oderate, and increased to tricuspid regurgitation is now moderate, no pulmonary hypertension and otherwise fairly stable since previous echo. Her stress test also performed in April is detailed above, and imaging showed no evid ence of ischemia or infarct with mild lateral wall dyskinesia, and EKG done Nondiagnostic du e to left bundle branch block. Labs performed in April detailed above and show her lipids are well controlled on at orvastatin 20 mg, and her CMP was normal except for mildly elevated glucose of 114. I reviewed the results of her test in detail with her. As discussed in HPI, her symptoms o f left-sided chest pain with occasional nausea have resolved since she has been back on her cardiac medications on a daily basis. She still has some mild dyspnea with exertion, but al so slightly improved since I saw her last, and she still smokes. I made no changes to her cardiac medications today. She should continue atorvastatin 20 mg nightly for hyperlipidemia, carvedilol 25 mg twice daily for heart failure and cardiomyopat hy, Lasix 20 mg daily for pedal edema and heart failure, lisinopril 5 mg nightly for cardio myopathy and heart failure, and potassium 20 mEq daily of daily. She has had some increased cramping to her legs, which may be related to her work, or deple tion of magnesium secondary to her daily diuretic, so I have suggested she take magnesium ox josh 250-400 mg daily, and work on stretching. If her symptoms persist or progress, she may need an evaluation by vascular surgery for inc reased claudication given her jail smoking. I again discussed with her that her smoking with a huge risk factor for ischemic heart dis ease, stroke, and increased peripheral vascular disease, as well as COPD and cancer, and had strongly encouraged her to quit, and she only smokes 6 cigarettes/day. She is not sure if she can quit, so I have encouraged her to try reducing her cigarettes by 1 cigarette/day every 2 weeks to decreased her dependency. She will follow-up next with Dr. Walker in 6 months for primary cardiology visit, but is daniel re she can see me sooner if indicated. 1. Cardiomyopathy, dilated, nonischemic (HCC) 2. Precordial pain 3. LBBB (left bundle branch block) 4. Chronic systolic CHF (congestive heart failure) (HCC) 5. Mild mitral regurgitation 6. Palpitations 7. Dyslipidemia 8. Dyspnea on exertion 9. Obstructive sleep apnea syndrome in adult 10. Intermittent claudication (HCC) 11. Pre-diabetes 12. Current smoker No orders of the defined types were placed in this encounter. The following portions of the patient's history were personally reviewed by me and updated as appropriate: EKG tracings, other specialty provider and PCP notes,any Hospital admission and discharge summaries, any ER records , current and previous cardiac testing and procedure reports and d cheikh, medication bottles brought to visit today, but medication list and pharmacy dispense report personally reviewed by me. Allergies, current medications.labs Family history, past medical history, past social history, past surgical history. Problem list. This encounter was dictated with voice recognition software and may contain inadvertent rec ognition errors. Mj DIAZ [facility] Cardiology 05/09/2019 Luann davis in this encounter Plan of Treatment +--------+---------+ + + + | Date | Type | Specialty | Care Team | Description | +--------+---------+ + + + | 11/14/ | Office | Cardiology | Harjinder Walker, | | | 2019 | Visit | | MD [address] | | | | | | [place], | | | | | | [place] [address] | | | | | | [phone] | | | | | | | | +--------+---------+ + + + documented as of this encounter Visit Diagnoses + + | Diagnosis | + + | Cardiomyopathy, dilated, nonischemic (HCC) - Primary Other primary cardiomyopathies | + + | Precordial pain | + + | LBBB (left bundle branch block) Other left bundle branch block | + + | Chronic systolic CHF (congestive heart failure) (HCC) | + + | Mild mitral regurgitation Mitral valve disorders | + + | Palpitations | + + | Dyslipidemia Other and unspecified hyperlipidemia | + + | Dyspnea on exertion Other dyspnea and respiratory abnormality | + + | Obstructive sleep apnea syndrome in adult Obstructive sleep apnea (adult) (pediatric) | + + | Intermittent claudication (HCC) Peripheral vascular disease, unspecified | + + | Pre-diabetes Other abnormal glucose | + + | Current smoker Tobacco use disorder | + + documented in this encounter
--- OUTSIDE RECORDS SUMMARY | ~2019-06-13 | XMS | Encounter Summary ---
Demographics + + + | Address | [address] | | | [place] [address] | + + + | Home Phone | | + + + | Preferred Language | Unknown | + + + | Marital Status | | + + + | Latter Day Affiliation | Unknown | + + + | Race | Unknown | + + + | Ethnic Group | Unknown | + + + Author + + + | Author | [facility] | | | and [place] | + + + | Organization | [facility] | | | and [place] [...] Team Providers + +------+ + | Care Medicare Coordinator Name | Role | Phone | + +------+ + | Dolores Mayorga | PCP | | + +------+ + Encounter Details +--------+ + + + + | Date | Type | Department | Care Team | Description | +--------+ + + + + | 11/23/ | Orders Only | [facility] | Conversion | | | 2018 | | CONVERSION DEP [address] | Transaction, | | | | | [address] | Provider Unknown | | | | | [place] | | | | | | [phone] | (Fax) | | | | | [phone] | | | +--------+ + + + + Social History + +-------+ +--------+------+ | Tobacco Use | Types | Packs/Day | Years | Date | | | | | Used | | + +-------+ +--------+------+ | Current Every Day | | 0.5 | | | | Smoker | | | | | + +-------+ +--------+------+ + + | 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
--- OUTSIDE RECORDS SUMMARY | ~2019-06-13 | XMS | Encounter Summary ---
Demographics + + + | Address | [address] | | | [place] [address] | + + + | Home Phone | | + + + | Preferred Language | Unknown | + + + | Marital Status | | + + + | Yazidism Affiliation | Unknown | + + + | Race | Unknown | + + + | Ethnic Group | Unknown | + + + Author + + + | Author | [facility] | | | and [place] | + + + | Organization | [facility] | | | and [...] Team Providers + +------+ + | Care Corporate Vp Advertising & Online Name | Role | Phone | + [...] + + | 02/16/ | Refill | [facility] | Suki Emery | Medication Refill | | 2019 | | CARDIOLOGY [place] | [address] | | | | | [address] | [address] | | | | | [address] | [place] [address] | | | | | [place] | [phone] | | | | | [address] | | | | | | [phone] | | | +--------+--------+ + + + Social History + +-------+ +--------+------+ | Tobacco Use | Types | Packs/Day | Years | Date | | | | | Used | | + +-------+ +--------+------+ | Current Every Day | | 0.5 | | | | Smoker | | | | | + +-------+ +--------+------+ + + | 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
--- OUTSIDE RECORDS SUMMARY | ~2019-06-13 | XMS | Encounter Summary ---
Demographics + + + | Address | [address] | | | [place] [address] | + + + | Home Phone | | + + + | Preferred Language | Unknown | + + + | Marital Status | | + + + | Latter Day Affiliation | Unknown | + + + | Race | Unknown | + + + | Ethnic Group | Unknown | + + + Author + + + | Author | [facility] | | | and [place] | + + + | Organization | [facility] | | | and [place] [...] Team Providers + +------+ + | Care Information Technology Internship Name | Role | Phone | + [...] [place] | | | | | | [phone] | (Fax) | | | | | [phone] | | | +--------+ + + + + Social History + +-------+ +--------+------+ | Tobacco Use | Types | Packs/Day | Years | Date | | | | | Used | | + +-------+ +--------+------+ | Current Every Day | | 0.5 | | | | Smoker | | | | | + +-------+ +--------+------+ + + | 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
--- OUTSIDE RECORDS SUMMARY | ~2019-06-13 | XMS | Encounter Summary ---
Demographics + + + | Address | [address] | | | [place] [address] | + + + | Home Phone | | + + + | Preferred Language | Unknown | + + + | Marital Status | | + + + | Anabaptism Affiliation | Unknown | + + + | Race | Unknown | + + + | Ethnic Group | Unknown | + + + Author + + + | Author | [facility] | | | and [place] | + + + | Organization | [facility] | | | and [place] | [...] Team Providers + +------+ + | Care Casino Banker Name | Role | Phone | + [...] + + | 06/13/ | Telephone | 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
--- OUTSIDE RECORDS SUMMARY | ~2019-06-13 | XMS | Encounter Summary ---
Demographics + + + | Address | [address] | | | [place] [address] | + + + | Home Phone | | + + + | Preferred Language | Unknown | + + + | Marital Status | | + + + | Catholic Affiliation | Unknown | + + + | Race | Unknown | + + + | Ethnic Group | Unknown | + + + Author + + + | Author | [facility] | | | and [place] | + + + | Organization | [facility] | | | and [place] [...] Team Providers + +------+ + | Care Research Instrumentation Technician Name | Role | Phone | [...] [place], | | | | | [place], [place] | [place] [address] | | | | | [address] | [phone] | | | | | [phone] | | | +--------+ + + + [...] | | | | | | [place] [address] | | | | | | [phone] | | | | | | | [...] TR | | | Vmax: 1.78 m/s Manager Floor: Authenticated by: Silvino | | | Erickson [...] (A-L): 32.38 ml/m2LAAs | | A2C: 16.68 [id number] A-L A2C: 52.41 mlLALs A2C: 4.50 cmLAAs A4C: 18.35 [id number] | | A-L A4C: 62.56 mlLALs A4C: 4.56 cmRAAd: 11.73 df2VNDMN A-L: 31.52 mlRAEDV MOD: | | 29.75 mlRALd: 3.71 cmTAPSE: 1.75 cmAV maxP.01 mmHgAV meanP.68 mmHgAV | | Vmax: 1.50 m/Khari Vmean: 1.00 m/Khari VTI: 29.02 cmAVA Vmax: 2.08 cm2AVA (VTI): | | 1.99 [id number] Vmax: 0.00 cm2/m2AVAI (VTI): 0.00 cm2/m2LVOT maxP.31 [...] maxP.77 | | mmHgTR Vmax: 1.78 m/s Manager Floor:Authenticated by: Erickson Dubois MDReport | | Date/Time: [...] |TR Vmax: 1.78 m/s | | | |Manager Floor: | |Authenticated by: Erickson Dubois MD | [...]
--- OUTSIDE RECORDS SUMMARY | ~2019-06-13 | XMS | Encounter Summary ---
Demographics + + + | Address | [address] | | | [place] [address] | + + + | Home Phone | | + + + | Preferred Language | Unknown | + + + | Marital Status | | + + + | Baptist Affiliation | Unknown | + + + | Race | Unknown | + + + | Ethnic Group | Unknown | + + + Author + + + | Author | [facility] | | | and [place] | + + + | Organization | [facility] | | [...] Team Providers + +------+ + | Care Appeals Court Associate Justice Name | Role | Phone | + [...] + | 05/09/ | Office | [facility] | Suki Emery | Cardiomyopathy, | | 2019 | Visit | CARDIOLOGY [place] | [address] | dilated, nonischemic | | | | [address] | [address] | ([facility]) (Primary Dx); | | | | [address] | [place] [address] | Precordial pain; | | | | [place], [place] | [phone] | LBBB (left bundle | | | | [address] | | branch block); | | | | [phone] | | Chronic systolic CHF | | | | | | (congestive heart | | | | | | failure) ([facility]); Mild | | | | | | [...] | | | | | | claudication ([facility]); | | | | | [...] +---+---+---+ + + | 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 She reported Previously that her low income housing plans for [place] were not appro ada, so she has remained in [place]. She never followed up on my referral [...] diabetes . Her child 2007, lives in [place] , Moved from [place] in [facility] 1 year ago. Looks after grandchild, works at [employer] in [facility] [employer] [facility]. Outpatient Medications Prior to Visit Medication [...] left bundle branch block. Rate 64 bpm, LA 176 ms, QRS 146 ms, QTC 484 ms, tracing personally reviewed by [facility] LABS Labs: 07/03/2017: CMP: Gl 99, BUN [...] surgery for inc reased claudication given her [facility] smoking. I again discussed with her that [...] contain inadvertent rec ognition errors. Mj DIAZ [facility] Cardiology 05/09/2019 Luann davis in this encounter [...] | | | | | | [place] [address] | | | | | | [phone] | | | | | | | [...]
--- OUTSIDE RECORDS SUMMARY | ~2019-06-13 | XMS | Encounter Summary ---
Demographics + + + | Address | [address] | | | [place] [address] | + + + | Home Phone | | + + + | Preferred Language | Unknown | + + + | Marital Status | | + + + | Temple Affiliation | Unknown | + + + | Race | Unknown | + + + | Ethnic Group | Unknown | + + + Author + + + | Author | [facility] | | | and Tyronana | + + + | Organization | [facility] | | | and Tyronana [...] Team Providers + +------+ + | Care Product Safety Technician Name | Role | Phone | [...] + + | 04/05/ | Refill | [facility] | Suki Emery | Medication Refill | | 2019 | | CARDIOLOGY [place] | [address] | | | | | [address] | [address] | | | | | [address] | [place] [address] | | | | | [place], [place] | [phone] | | | | | [address] | | | | | | [phone] | | | +--------+--------+ + + + [...] +---+---+---+ + + | 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
[~2019-06-13 16:35] MED LIST changes: +MACROBID 100 M100 MG PO; +ZOFRAN4 MG PO
--- OUTSIDE RECORDS SUMMARY | 2019-06-13 16:38 | XMS ---
PreManage Notification: CLEO SHAH Security Telephonic Nurse Case Manager Events No recent Security Events currently on file CRITERIA MET - Group Notification CARE PROVIDERS RADHA HU Physician Psychiatric Technician Assistant 02/08/2019-Current PHONE: [phone] [facility] 06/12/2012-Current Jah GARCIAS PHONE: Unknown RADHA [facility] 11/06/2016-Current PHONE: [phone] CAROLIN Mast [facility] Primary [facility] PHONE: Unknown Kelin has no Care Guidelines for this patient. Raine VISIT COUNT (12 MO.) 2 VEGA [facility] TOTAL 2 NOTE: Visits indicate total known visits. ED/UCC VISIT TRACKING (12 MO.) 06/13/2019 16:35 [facility] [place] TYPE: Emergency COMPLAINT: - CHEST PAIN 02/07/2019 10:00 [facility] [place] TYPE: Emergency COMPLAINT: - FLANK PAIN DIAGNOSES: - Nicotine dependence, unspecified, uncomplicated - Urinary tract infection, site not specified - Heart failure, unspecified - Unspecified abdominal pain INPATIENT VISIT TRACKING (12 MO.) No inpatient visits to display in this time frame [email or web address]
[2019-06-13] MEDS ORDERED: CARVEDILOL25 MG PO (16:49)
[2019-06-13] MEDS ORDERED: LISINOPRIL5 MG PO (16:49)
[2019-06-13] MEDS ORDERED: FUROSEMIDE20 MG PO (16:49)
[2019-06-13] MEDS ORDERED: GABAPENTIN300 MG PO (16:49)
[2019-06-13] MEDS ORDERED: POTASSIUM CHLO20 ME1 PO (16:50)
[2019-06-13] MEDS ORDERED: NITROGLYCERIN0.4 MG SL (16:50)
[2019-06-13] MEDS ORDERED: ATORVASTATIN CA20 MG PO (16:50)
[2019-06-13] MEDS ORDERED: MEDROL4 M1 PO (19:07)
--- NOTE | 2019-06-13 21:15 | EKG ---
[facility] [address] [facility] [place] [address] Signed Normal sinus rhythm Left bundle branch block Abnormal ECG When compared with ECG of 02-APR-2017 15:33, Left bundle branch block is now present Confirmed by SHARON NELSON MD ([id number]) on 06/13/2019 9:15:31 PM Electronically Signed By: SHARON NELSON MD 06/13/19 2115 PATIENT NAME: CLEO SHAH Electrocardiogram DATE OF : 63 PHYSICIAN: SHARON NELSON MD REPORT #: [id number] REPORT IS CONFIDENTIAL AND NOT TO BE RELEASED WITHOUT AUTHORIZATION
== END 2019-06-13 19:25 | disposition home or self-care (01) ==
LOC: ED 16:35
DX: R07.89 Other chest pain (principal); I50.9 Heart failure, unspecified; F17.200 Nicotine dependence, unspecified, uncomplicated; Z79.899 Other long term (current) drug therapy
CPT/HCPCS: 71045; 71260; 80053; 83880; 84484; 85025; 93005; 93010; 99285-25; Q9967

== ENCOUNTER 2019-12-26 06:20 | Day surgery (SDC) | payer OTHER ==
[~2019-12-26] VITALS: Ht 157.5 cm; Wt 83.9 kg
[~2019-12-26 06:20] MED LIST changes: +ATORVASTATIN CA20 MG PO; +CARVEDILOL25 MG PO; +FUROSEMIDE20 MG PO; +GABAPENTIN300 MG PO; +LISINOPRIL5 MG PO; +MEDROL4 M1 PO; +NITROGLYCERIN0.4 MG SL; +POTASSIUM CHLO20 ME1 PO
--- NOTE | 2019-12-26 08:45 | NUR ---
12/26/19 0845 Stefanie Gao 0816- PT TO PACU IN SF POSITION. EYES OPEN. BREATHING EASY AND UNLABORED SP02 >95% ON 3 L O2 VIA NC. POC DISCUSSED WITH PATIENT. REPORT RECEIVED FROM END PACKER. 0820- PT TALKING WITH MD AT [facility]. FINDINGS DISCUSSED AND PRESCRIPTIONS PROVIDED. PT CONTINUES TO BREATH EASY AND UNLABORED. SPO2 >95% ON 3 L O2 VIA NC. PT DENIES PAIN DIZZINESS OR NAUSEA. 0827- PT MOBILIZED TO LL POSITION IN BED WITH KNEES UP. PT ENCOURAGED TO PASS GAS. BREATHING EASY AND UNLABORED. SP02 >95%. 0837- PT HAS BEEN PASSING GAS. PT ABLE TO REPOSITION SELF IN THE BED. HOB ELEVATED AND WATER PROVIDED. BREATHING EASY AND UNLABORED. SPO2 >95%. O2 TITRATED TO ROOM AIR. 0845- PT CONTINUES TO PASS GAS. TOLERATING PO WELL. BREATHING EASY AND UNLABORED. SPO2 >95%. PT DENIES PAIN DIZZINESS OR NAUSEA.
--- NOTE | 2019-12-26 13:26 | NUR ---
PT ALERT ORIENTED AND IN FOR FIRST SCOPE IN MANY YRS. ALL QUESIONS ASKED WERE ANSWERED. PT REQUESTED PRAYER, AND SAID SHE HAS ARRANGED A RIDE HOME
--- NOTE | 2019-12-27 10:33 | PATH ---
[facility] [address] [place] [address] Signed SPECIMEN(S): A CECUM SPECIMEN(S): B ASCENDING SPECIMEN(S): C DESCENDING SPECIMEN(S): D RECTUM SPECIMEN SOURCE: A. CECUM B. ASCENDING C. DESCENDING D. RECTUM CLINICAL HISTORY: Pre: Hx of diarrhea. Post: Mild R sided inflammation, diverticulosis. MICROSCOPIC DESCRIPTION: Histologic sections of all submitted blocks are examined by light microscopy. These findings, together with the gross examination, support the pathologic diagnosis. FINAL PATHOLOGIC DIAGNOSIS: A. Colon, cecum, biopsy: - Colonic mucosa with no histopathologic abnormality. - Negative for active, chronic, or microscopic colitis. - Negative for dysplasia or malignancy. B. Colon, ascending, biopsy: - Colonic mucosa with no histopathologic abnormality. - Negative for active, chronic, or microscopic colitis. - Negative for dysplasia or malignancy. C. Colon, descending, biopsy: - Colonic mucosa with no histopathologic abnormality. - Negative for active, chronic, or microscopic colitis. - Negative for dysplasia or malignancy. D. Rectum, biopsy: - Rectal mucosa with no histopathologic abnormality. - Negative for active, chronic, or microscopic proctitis. - Negative for dysplasia or malignancy. NAL:slh:C2NR GROSS DESCRIPTION: Four specimens are received in four containers, labeled "KL." A. The specimen, labeled "KL," and designated on the requisition "cecum biopsy," is received in formalin and consists of one fragment of yellow-pat PATIENT NAME: CLEO SHAH PATHOLOGY DATE OF : 63 REPORT #: [id number] PHYSICIAN: KVNG THIBODEAUX PCP: RADHA HU PA-C REPORT IS CONFIDENTIAL AND NOT TO BE RELEASED WITHOUT AUTHORIZATION [facility] [address] [place], [place] [address] Signed tissue (0.4 x 0.2 x 0.2 cm). The specimen is submitted entirely in cassette (A1). B. The specimen, labeled "KL," and designated on the requisition "ascending/right colon biopsy," is received in formalin and consists of two fragments of pink-pat tissue (0.3 x 0.3 x 0.2 cm in aggregate). The specimen is submitted entirely in cassette (B1). C. The specimen, labeled "KL," and designated on the requisition "descending/left colon biopsy," is received in formalin and consists of two fragments of pink-pat tissue (0.4 x 0.3 x 0.2 cm). The specimen is submitted entirely in cassette (C1). D. The specimen, labeled "KL," and designated on the requisition "rectum biopsy," is received in formalin and consists of one fragment of pink-pat tissue (0.3 x 0.2 x 0.2 cm). The specimen is submitted entirely in cassette (D1). AC (under the direct supervision of a pathologist) The Gross Description was prepared using a voice recognition system. The report was reviewed for accuracy; however, sound-alike word errors, addition and/or deletions may occur. If there is any question about this report, please contact Client Services. PERFORMING LABORATORY: The technical component was performed by [facility], [address] [place] [address] (Medical Associate: Yamel Parra MD; CLIA# [id number]). Professional interpretation was performed by [facility], [facility], [address] [address] (CLIA# [id number]). Diagnostician: Savannah Petersen MD Pathologist Electronically Signed 12/27/2019 Copies: ~ PATIENT NAME: CLEO SHAH PATHOLOGY DATE OF : 63 REPORT #: [id number] PHYSICIAN: KVNG THIBODEAUX PCP: RADHA HU PA-C REPORT IS CONFIDENTIAL AND NOT TO BE RELEASED WITHOUT AUTHORIZATION
--- NOTE | 2019-12-27 13:17 | OR ---
[facility] [address] [place], [place] [address] Signed DATE OF OPERATION: 12/26/2019 SURGEON: Tyler Michelle MD PREOPERATIVE DIAGNOSES: 1. Longstanding diarrhea. 2. Family history of Crohn disease (aunt). POSTOPERATIVE DIAGNOSES: 1. Extensive diverticular changes in sigmoid and left colon. 2. Mild inflammatory change of right colon of uncertain significance. PROCEDURES: 1. Total colonoscopy to cecum with biopsy of cecum, right colon, sigmoid and rectum. 2. Application of hemoclips to rectal biopsy with persistent bleeding. ANESTHESIA: Intravenous sedation, fentanyl 150 mcg and Versed 6 mg. INDICATION: This 54-year-old white woman is a patient of TENZIN Guerrero. She has longstanding diarrhea since her 30s. She has undergone colonoscopy in the past. She self describes congestive heart failure and sleep apnea syndrome. She describes also a family history of Crohn disease in an aunt. She has had no rectal bleeding and no family history of colon cancer. She is admitted at this time to undergo colonoscopy, understands the risks of bleeding, infection, and perforation. FINDINGS: Prep was good. Complete colonoscopy was undertaken of the cecum. I was unable to intubate the ileum. Passage to the sigmoid was challenging. There are numerous diverticuli of the sigmoid colon. There was mild punctate colitis type findings of the right colon and transverse, so I think it is unlikely to represent Crohn disease or any other specific . Biopsies were taken nevertheless. There was no sign of polyps or cancer. Biopsies of the rectum were undertaken as well, and there appeared to be persistent somewhat pulsatile bleeding for which 2 hemoclips were applied with good hemostatic effect. DESCRIPTION OF PROCEDURE: The patient was brought to the endoscopy suite and placed in lateral decubitus position. She was given intravenous sedation to the point of slurred speech and nystagmus with Electronically Signed By: TYLER MICHELLE MD 12/27/19 1317 PATIENT NAME: CLEO SHAH OPERATIVE REPORT DATE OF : 63 REPORT #: [id number] PHYSICIAN: TYLER MICHELLE MD PCP: DOLORES MAYORGA PA-C REPORT IS CONFIDENTIAL AND NOT TO BE RELEASED WITHOUT AUTHORIZATION [facility] [address] [place], [place] [address] Signed full cardiopulmonary monitoring. Digital rectal examination was normal. An Olympus video colonoscope was passed in the rectum and manipulated throughout the colon. Passage to the sigmoid and left colon was rather challenging on the basis of angulation deformity related to extensive diverticular changes. The scope was ultimately passed beyond this to the cecum. The ileocecal valve was visualized, but could not be intubated despite efforts to do so. A punctate appearance of the right colon and transverse colon was noted, though it was not a specific colitis type issue. Biopsies were taken of the cecum upon withdrawal of scope as well as the right colon, left colon, sigmoid and rectum. Persistent bleeding in the rectal biopsies, which was somewhat pulsatile, was ultimately secured with 2 hemoclips. The scope was then withdrawn and removed and the patient was taken to the recovery room in good condition. CONCLUSION DIAGNOSIS: Her diarrhea problem was more likely an irritable bowel syndrome rather than inflammatory one. We will await the pathology reports from the biopsies. Notably her COVID-19 test is still pending (preoperative testing). Since the diarrhea is longstanding, it is unlikely to be related to COVID-19 infection. Notably, she had a COVID-19 test 3-4 weeks ago, which was negative. As regard to the diverticula, despite it could account for her angulation deformity less likely diarrhea, would recommend soluble fiber such as Metamucil or Citrucel 1 scoop p.o. daily. She will return to the ongoing care of TENZIN Guerrero. If there are abnormalities on the pathology report, we will see her back and review those with her as well as the management plan. MD JOSE Cortes/CHYNA /[id number] cc: Dolores Mayorga PA-C Copies: DOLORES MAYORGA PA-C ~ Electronically Signed By: TYLER MICHELLE MD 12/27/19 1317 PATIENT NAME: LCEO SHAH OPERATIVE REPORT DATE OF : 63 REPORT #: [id number] PHYSICIAN: TYLER MICHELLE MD PCP: DOLORES MAYORGA PA-C REPORT IS CONFIDENTIAL AND NOT TO BE RELEASED WITHOUT AUTHORIZATION
== END 2019-12-26 08:58 | disposition home or self-care (01) ==
LOC: OPS 06:20 → DS 06:20 → OPS 06:45
PROVIDERS: Surgery
PROC: 0DBP8ZX Excision of Rectum, Via Natural or Artificial Opening Endoscopic, Diagnostic (ICD-10-PCS; 2019-12-26)
PROC: 0DBM8ZX Excision of Descending Colon, Via Natural or Artificial Opening Endoscopic, Diagnostic (ICD-10-PCS; 2019-12-26)
PROC: 0DBH8ZX Excision of Cecum, Via Natural or Artificial Opening Endoscopic, Diagnostic (ICD-10-PCS; 2019-12-26)
PROC: 0DBK8ZX Excision of Ascending Colon, Via Natural or Artificial Opening Endoscopic, Diagnostic (ICD-10-PCS; principal; 2019-12-26 06:45)
DX: R19.7 Diarrhea, unspecified (principal); K62.5 Hemorrhage of anus and rectum; K57.30 Diverticulosis of large intestine without perforation or abscess without bleeding; I11.0 Hypertensive heart disease with heart failure; I50.9 Heart failure, unspecified; F32.9 Major depressive disorder, single episode, unspecified; F17.210 Nicotine dependence, cigarettes, uncomplicated; Z79.899 Other long term (current) drug therapy
CPT/HCPCS: 99153; G0500; J2250; J3010; J7121

== ENCOUNTER 2020-06-08 12:27 | Emergency (ER) | payer OTHER ==
[~2020-06-08] VITALS: Ht 157.5 cm; Wt 83.9 kg
--- OUTSIDE RECORDS SUMMARY | 2020-06-08 12:30 | XMS ---
PreManage Notification: CLEO SHAH Security Escort Service Attendant Events No recent Security Events currently on file CRITERIA MET - Group Notification - [facility] - Has Care Guidelines CARE PROVIDERS RADHA HU Physician Associate Professor Of Automation 02/08/2019-Current PHONE: [phone] Guidelines Source: [facility] Guidelines Date: 06/14/2019 Care Coordination: Mental health services are being provided by [facility].\T\nbsp; Please contact [facility] with mental health concerns.\T\nbsp; [facility]: \T\nbsp; [place]: [phone]. E.D. VISIT COUNT (12 MO.) [address] [place] [address] TOTAL 2 NOTE: Visits indicate total known visits. ED/UCC VISIT TRACKING (12 MO.) 06/08/2020 12:28 [facility] [place] TYPE: Emergency COMPLAINT: - NECK PAIN, WEAKNESS 06/13/2019 16:35 [facility] [place] TYPE: Emergency COMPLAINT: - CHEST PAIN DIAGNOSES: - Other terminal manager (current) drug therapy - Other chest pain - Heart failure, unspecified - Nicotine dependence, unspecified, uncomplicated INPATIENT VISIT TRACKING (12 MO.) No inpatient visits to display in this time frame [id number]
[2020-06-08] MEDS ORDERED: BISOPROLOL FUMA10 MG PO (17:29)
[2020-06-08] MEDS ORDERED: MONTELUKAST SOD10 MG PO (17:31)
[2020-06-08] MEDS ORDERED: METHYLPREDNISOLO4 M1 PO (18:44)
[2020-06-08] MEDS ORDERED: SUDOGEST30 MG PO (18:44)
== END 2020-06-08 19:02 | disposition home or self-care (01) ==
LOC: ED 12:27
DX: H69.93 Unspecified Eustachian tube disorder, bilateral (principal); I50.9 Heart failure, unspecified; F17.200 Nicotine dependence, unspecified, uncomplicated; Z79.899 Other long term (current) drug therapy; R59.0 Localized enlarged lymph nodes
CPT/HCPCS: 96372; 99283; J1100; J1885

== ENCOUNTER 2020-10-07 18:28 | Emergency (ER) | payer OTHER ==
[~2020-10-07] VITALS: Ht 157.5 cm; Wt 88.9 kg
[~2020-10-07 18:28] MED LIST changes: +BISOPROLOL FUMA10 MG PO; +METHYLPREDNISOLO4 M1 PO; +MONTELUKAST SOD10 MG PO; +SUDOGEST30 MG PO
--- OUTSIDE RECORDS SUMMARY | 2020-10-07 18:34 | XMS ---
PreManage Notification: CLEO SHAH Security Transmitter Engineer In Charge Events No recent Security Events currently on file CRITERIA MET - Group Notification - [facility] - Has Care Guidelines CARE PROVIDERS RADHA HU Physician Custodial Engineer 02/08/2019-Current PHONE: [phone] Guidelines Source: [facility] Guidelines Date: 06/14/2019 Care Coordination: Mental health services are being provided by [facility].\T\nbsp; Please contact [facility] with mental health concerns.\T\nbsp; [facility]: \T\nbsp; [place]: [phone]. E.D. VISIT COUNT (12 MO.) [address] [place] [address] TOTAL 2 NOTE: Visits indicate total known visits. ED/UCC VISIT TRACKING (12 MO.) 10/07/2020 18:28 [facility] [place] TYPE: Emergency COMPLAINT: - CHEST PAIN, LT ARM PAIN 06/08/2020 12:28 [facility] [place] TYPE: Emergency COMPLAINT: - NECK PAIN, WEAKNESS DIAGNOSES: - Localized enlarged lymph nodes - Heart failure, unspecified - Other care home (current) drug therapy - Unspecified Eustachian tube disorder, bilateral - Nicotine dependence, unspecified, uncomplicated INPATIENT VISIT TRACKING (12 MO.) No inpatient visits to display in this time frame [email or web address]
--- NOTE | 2020-10-08 10:41 | EKG ---
[facility] [address] [place] [address] Signed Normal sinus rhythm Left bundle branch block Abnormal ECG When compared with ECG of 13-JUN-2019 16:41, No significant change was found Confirmed by SHARON NELSON MD ([id number]) on 10/08/2020 10:40:43 AM Electronically Signed By: SHARON NELSON MD 10/08/20 1041 PATIENT NAME: CLEO SHAH Electrocardiogram DATE OF : 63 PHYSICIAN: SHARON NELSON MD REPORT #: [id number] REPORT IS CONFIDENTIAL AND NOT TO BE RELEASED WITHOUT AUTHORIZATION
== END 2020-10-07 22:18 | disposition home or self-care (01) ==
LOC: ED 18:28
DX: R10.12 Left upper quadrant pain (principal); I50.9 Heart failure, unspecified; F17.200 Nicotine dependence, unspecified, uncomplicated; Z79.899 Other long term (current) drug therapy
CPT/HCPCS: 71045; 80053; 83690; 83735; 83880; 84484; 85025; 93005; 93010; 99284-25

== ENCOUNTER 2021-01-17 21:29 | Emergency (ER) | payer OTHER ==
[~2021-01-17] VITALS: Ht 157.5 cm; Wt 84.4 kg
--- OUTSIDE RECORDS SUMMARY | 2021-01-17 21:42 | XMS ---
PreManage Notification: CLEO SHAH Security School Psychometrist Events No recent Security Events currently on file CRITERIA MET - Group Notification CARE PROVIDERS RADHA HU Physician Veneer Puller 02/08/2019-Current PHONE: [phone] Care Guidelines exist for the following facilities: [facility] ( 06/14/2019 ) [place] VISIT COUNT (12 MO.) 3 [facility] TOTAL 3 NOTE: Visits indicate total known visits. ED/UCC VISIT TRACKING (12 MO.) 01/17/2021 21:30 [facility] [place] TYPE: Emergency COMPLAINT: - LT WRIST INJURY 10/07/2020 18:28 [facility] [place] TYPE: Emergency COMPLAINT: - ABD PAIN DIAGNOSES: - Heart failure, unspecified - Other dedicated intermodal truck driver (current) drug therapy - Left upper quadrant pain - Nicotine dependence, unspecified, uncomplicated 06/08/2020 12:28 [facility] [place] TYPE: Emergency COMPLAINT: - NECK PAIN, WEAKNESS DIAGNOSES: - Localized enlarged lymph nodes - Heart failure, unspecified - Other dedicated intermodal truck driver (current) drug therapy - Unspecified Eustachian tube disorder, bilateral - Nicotine dependence, unspecified, uncomplicated INPATIENT VISIT TRACKING (12 MO.) No inpatient visits to display in this time frame [id number]
[2021-01-17] MEDS ORDERED: HYDROCODON-ACE1 EA10 PO (22:16)
== END 2021-01-17 23:14 | disposition home or self-care (01) ==
LOC: ED 21:29
DX: S52.502A Unspecified fracture of the lower end of left radius, initial encounter for closed fracture (principal); S62.112A Displaced fracture of triquetrum [cuneiform] bone, left wrist, initial encounter for closed fracture; W18.2XXA Fall in (into) shower or empty bathtub, initial encounter; I50.9 Heart failure, unspecified; F17.200 Nicotine dependence, unspecified, uncomplicated; Z88.6 Allergy status to analgesic agent; Z79.899 Other long term (current) drug therapy; Z88.8 Allergy status to other drugs, medicaments and biological substances
CPT/HCPCS: 29125; 73110; 73130; 99283-25

== ENCOUNTER 2021-03-30 07:33 | Emergency (ER) | payer OTHER ==
[~2021-03-30] VITALS: Ht 157.5 cm; Wt 82.0 kg
[~2021-03-30 07:33] MED LIST changes: +HYDROCODON-ACE1 EA10 PO
--- OUTSIDE RECORDS SUMMARY | 2021-03-30 07:36 | XMS ---
PreManage Notification: CLEO SHAH Security Nuclear Physics Professor Events No recent Security Events currently on file CRITERIA MET - PDMP - Group Notification CARE PROVIDERS RADHA HU Physician Advice Nurse 02/08/2019-Current PHONE: [phone] Care Guidelines exist for the following facilities: [facility] ( 06/14/2019 ) [place] VISIT COUNT (12 MO.) Candy [facility] TOTAL 4 NOTE: Visits indicate total known visits. ED/UCC VISIT TRACKING (12 MO.) 03/30/2021 07:34 [facility] [place] TYPE: Emergency COMPLAINT: - COUGHING BLOOD, HEAVY CHEST 01/17/2021 21:30 [facility] [place] TYPE: Emergency COMPLAINT: - LT WRIST INJURY DIAGNOSES: - Allergy status to other drugs, medicaments and biological substances - Heart failure, unspecified - Unspecified fracture of the lower end of left radius, initial encounter for closed fracture - Allergy status to analgesic agent - Nicotine dependence, unspecified, uncomplicated - Fall in (into) shower or empty bathtub, initial encounter - Displaced fracture of triquetrum [cuneiform] bone, left wrist, initial encounter for closed fracture - Other usp (current) drug therapy 10/07/2020 18:28 [facility] [place] TYPE: Emergency COMPLAINT: - ABD PAIN DIAGNOSES: - Heart failure, unspecified - Other usp (current) drug therapy - Left upper quadrant pain - Nicotine dependence, unspecified, uncomplicated 06/08/2020 12:28 [facility] [place] TYPE: Emergency COMPLAINT: - NECK PAIN, WEAKNESS DIAGNOSES: - Localized enlarged lymph nodes - Heart failure, unspecified - Other intermediate teacher (current) drug therapy - Unspecified Eustachian tube disorder, bilateral - Nicotine dependence, unspecified, uncomplicated INPATIENT VISIT TRACKING (12 MO.) No inpatient visits to display in this time frame [id number]
== END 2021-03-30 09:11 | disposition home or self-care (01) ==
LOC: ED 07:33
DX: R05.9 Cough, unspecified (principal); I50.9 Heart failure, unspecified; F17.200 Nicotine dependence, unspecified, uncomplicated; Z88.6 Allergy status to analgesic agent; Z79.899 Other long term (current) drug therapy
CPT/HCPCS: 71046; 99283-25

== ENCOUNTER 2021-05-29 11:58 | Emergency (ER) | payer OTHER ==
[~2021-05-29] VITALS: Ht 157.5 cm; Wt 82.0 kg
--- OUTSIDE RECORDS SUMMARY | 2021-05-29 12:00 | XMS ---
PreManage Notification: CLEO SHAH Security Health And Safety Tech Events No recent Security Events currently on file CRITERIA MET - Group Notification - PDMP CARE PROVIDERS RADHA HU Physician Drywall Mechanic 04/01/2021-Current PHONE: [phone] Care Guidelines exist for the following facilities: [facility] ( 06/14/2019 ) [place] VISIT COUNT (12 MO.) Alistair [facility] TOTAL 5 NOTE: Visits indicate total known visits. ED/UCC VISIT TRACKING (12 MO.) 05/29/2021 11:59 [facility] [place] TYPE: Emergency COMPLAINT: - ABDOMINAL/LOWER BACK PAIN 03/30/2021 07:34 [facility] [place] TYPE: Emergency COMPLAINT: - COUGHING BLOOD, HEAVY CHEST DIAGNOSES: - Allergy status to analgesic agent - Nicotine dependence, unspecified, uncomplicated - Heart failure, unspecified - COUGH, UNSPECIFIED - Other residential (current) drug therapy 01/17/2021 21:30 [facility] [place] TYPE: Emergency [...] initial encounter for closed fracture - Other residential (current) drug therapy 10/07/2020 18:28 [facility] [place] TYPE: Emergency COMPLAINT: - ABD PAIN DIAGNOSES: - Heart failure, unspecified - Other meterman (current) drug therapy - Left upper quadrant pain - Nicotine dependence, unspecified, uncomplicated 06/08/2020 12:28 [facility] [place] TYPE: Emergency COMPLAINT: - NECK PAIN, WEAKNESS DIAGNOSES: - Localized enlarged lymph nodes - Heart failure, unspecified - Other residential (current) drug therapy - Unspecified Eustachian tube disorder, bilateral - Nicotine dependence, unspecified, uncomplicated INPATIENT VISIT TRACKING (12 MO.) No inpatient visits to display in this time frame [id number]
[2021-05-29] MEDS ORDERED: AMOX TR-K CLV1 EAC1 PO (16:20)
[2021-05-29] MEDS ORDERED: LISINOPRIL10 MG PO (16:20)
[2021-05-29] MEDS ORDERED: POTASSIUM CHLO10 ME2 PO (16:20)
[2021-05-29] MEDS ORDERED: AUGMENTIN 875-1 EACH PO (18:46)
[2021-05-29] MEDS ORDERED: ONDANSETRON ODT4 MG PO (18:46)
[2021-05-29] MEDS ORDERED: HYDROCODON-ACE1 EA10 PO (18:46)
== END 2021-05-29 20:20 | disposition home or self-care (01) ==
LOC: ED 11:58
DX: K57.32 Diverticulitis of large intestine without perforation or abscess without bleeding (principal); I50.9 Heart failure, unspecified; F17.200 Nicotine dependence, unspecified, uncomplicated; Z88.6 Allergy status to analgesic agent; Z79.899 Other long term (current) drug therapy
CPT/HCPCS: 74177; 80053; 81001; 83690; 85025; 96375; 96376; 99284-25; A9270; J2405; J2543; Q9967

== ENCOUNTER 2021-06-26 10:13 | Emergency (ER) | payer OTHER ==
[~2021-06-26] VITALS: Ht 157.5 cm; Wt 82.0 kg
[~2021-06-26 10:13] MED LIST changes: +AMOX TR-K CLV1 EAC1 PO; +AUGMENTIN 875-1 EACH PO; +LISINOPRIL10 MG PO; +ONDANSETRON ODT4 MG PO; +POTASSIUM CHLO10 ME2 PO
--- OUTSIDE RECORDS SUMMARY | 2021-06-26 10:20 | XMS ---
PreManage Notification: CLEO SHAH Security Transit Worker Events No recent Security Events currently on file CRITERIA MET - [facility] - 2 Visits in 30 Days - PDMP - Group Notification CARE PROVIDERS RADHA HU Physician Painter Spring 04/01/2021-Current PHONE: [phone] Care Guidelines exist for the following facilities: [facility] ( 06/14/2019 ) [place] VISIT COUNT (12 MO.) [address] [place] [address] TOTAL 5 NOTE: Visits indicate total known visits. ED/UCC VISIT TRACKING (12 MO.) 06/26/2021 10:13 [facility] [place] TYPE: Emergency COMPLAINT: - TORSO PAIN 05/29/2021 11:59 [facility] [place] TYPE: Emergency COMPLAINT: - ABDOMINAL/LOWER BACK PAIN DIAGNOSES: - Nicotine dependence, unspecified, uncomplicated - Diverticulitis of large intestine without perforation or abscess without bleeding - Unspecified abdominal pain - Allergy status to analgesic agent - Other computer terminal operator (current) drug therapy - Heart failure, unspecified 03/30/2021 07:34 [facility] [place] [place] [facility] COMPLAINT: - COUGHING BLOOD, HEAVY CHEST DIAGNOSES: - Allergy status to analgesic agent - Nicotine dependence, unspecified, uncomplicated - Heart failure, unspecified - COUGH, UNSPECIFIED - Other alf (current) drug therapy 01/17/2021 21:30 [facility] [place] [facility]: Emergency COMPLAINT: - LT WRIST [...] initial encounter for closed fracture - Other alf (current) drug therapy 10/07/2020 18:28 [facility] [place] TYPE: Emergency COMPLAINT: - ABD PAIN DIAGNOSES: - Heart failure, unspecified - Other computer terminal operator (current) drug therapy - Left upper quadrant pain - Nicotine dependence, unspecified, uncomplicated INPATIENT VISIT TRACKING (12 MO.) No inpatient visits to display in this time frame [email or web address]
[2021-06-26] MEDS ORDERED: HYDROCODON-ACE1 EA10 PO (14:05)
== END 2021-06-26 14:11 | disposition home or self-care (01) ==
LOC: ED 10:13
DX: R10.30 Lower abdominal pain, unspecified (principal); I50.9 Heart failure, unspecified; F17.200 Nicotine dependence, unspecified, uncomplicated; Z79.899 Other long term (current) drug therapy
CPT/HCPCS: 74177; 80053; 81001; 85025; 96375; 96376; 99284-25; J1170; J2405; Q9967

== ENCOUNTER 2021-10-18 13:23 | Emergency (ER) | payer OTHER ==
[~2021-10-18] VITALS: Ht 157.5 cm; Wt 82.0 kg
--- OUTSIDE RECORDS SUMMARY | 2021-10-18 13:26 | XMS ---
PreManage Notification: CLEO SHAH Security Survey Interviewer Events No recent Security Events currently on file CRITERIA MET - PDMP - Group Notification CARE PROVIDERS RADHA HU Physician Conservation Biology Professor 04/01/2021-Current PHONE: [phone] Care Guidelines exist for the following facilities: [facility] ( 06/14/2019 ) [place] VISIT COUNT (12 MO.) Alistair [facility] TOTAL 5 NOTE: Visits indicate total known visits. ED/UCC VISIT TRACKING (12 MO.) 10/18/2021 13:23 [facility] [place] TYPE: Emergency COMPLAINT: - ABD PAIN 06/26/2021 10:13 [facility] [place] TYPE: Emergency COMPLAINT: - TORSO PAIN DIAGNOSES: - Nicotine dependence, unspecified, uncomplicated - Lower abdominal pain, unspecified - Other alf (current) drug therapy - Heart failure, unspecified 05/29/2021 11:59 [facility] [place] TYPE: Emergency COMPLAINT: - ABDOMINAL/LOWER BACK PAIN DIAGNOSES: - Nicotine dependence, unspecified, uncomplicated - Diverticulitis of large intestine without perforation or abscess without bleeding - Unspecified abdominal pain - Allergy status to analgesic agent - Other intermediate frame tender (current) drug therapy - Heart failure, unspecified 03/30/2021 07:34 [facility] [place] TYPE: Emergency COMPLAINT: - COUGHING BLOOD, HEAVY CHEST DIAGNOSES: - Allergy status to analgesic agent - Nicotine dependence, unspecified, uncomplicated - Heart failure, unspecified - COUGH, UNSPECIFIED - Other alf (current) drug therapy 01/17/2021 21:30 [facility] [...] initial encounter for closed fracture - Other intermediate frame tender (current) drug therapy INPATIENT VISIT TRACKING (12 MO.) No inpatient visits to display in this time frame [email or web address]
== END 2021-10-18 19:10 | disposition home or self-care (01) ==
LOC: ED 13:23
DX: R10.9 Unspecified abdominal pain (principal); I50.9 Heart failure, unspecified; F17.200 Nicotine dependence, unspecified, uncomplicated; Z88.8 Allergy status to other drugs, medicaments and biological substances; Z79.899 Other long term (current) drug therapy
CPT/HCPCS: 36415; 74177; 80053; 83690; 85025; 99284-25; Q9967

== ENCOUNTER 2021-11-21 14:26 | Emergency (ER) | payer OTHER ==
[~2021-11-21] VITALS: Ht 157.5 cm; Wt 89.0 kg
--- OUTSIDE RECORDS SUMMARY | 2021-11-21 14:28 | XMS ---
PreManage Notification: CLEO SHAH Security Library Science Instructor Events No recent Security Events currently on file CRITERIA MET - PDMP - Group Notification CARE PROVIDERS RADHA HU Physician Jewel Hole Cornerer 04/01/2021-Current PHONE: [phone] Care Guidelines exist for the following facilities: [facility] ( 06/14/2019 ) [place] VISIT COUNT (12 MO.) Terence Burnham TOTAL 6 NOTE: Visits indicate total known visits. ED/UCC VISIT TRACKING (12 MO.) 11/21/2021 14:27 [facility] [place] TYPE: Emergency COMPLAINT: - LOW O2 SATS 10/18/2021 13:23 [facility] [place] TYPE: Emergency COMPLAINT: - ABD PAIN DIAGNOSES: - Allergy status to other drugs, medicaments and biological substances - Unspecified abdominal pain - Other manager long term care (current) drug therapy - Heart failure, unspecified - Nicotine dependence, unspecified, uncomplicated 06/26/2021 10:13 [facility] [place] TYPE: Emergency COMPLAINT: - TORSO PAIN DIAGNOSES: - Nicotine dependence, unspecified, uncomplicated - Lower abdominal pain, unspecified - Other manager long term care (current) drug therapy - Heart failure, unspecified 05/29/2021 11:59 [facility] [place] TYPE: Emergency COMPLAINT: - ABDOMINAL/LOWER BACK PAIN DIAGNOSES: - Nicotine dependence, unspecified, uncomplicated - Diverticulitis of large intestine without perforation or abscess without bleeding - Unspecified abdominal pain - Allergy status to analgesic agent - Other chcf (current) drug therapy - Heart failure, unspecified 03/30/2021 07:34 [facility] [place] TYPE: Emergency COMPLAINT: - COUGHING BLOOD, HEAVY CHEST DIAGNOSES: - Allergy status to analgesic agent - Nicotine dependence, unspecified, uncomplicated - Heart failure, unspecified - COUGH, UNSPECIFIED - Other manager long term care (current) drug therapy 01/17/2021 21:30 [facility] [...] initial encounter for closed fracture - Other chcf (current) drug therapy INPATIENT VISIT TRACKING (12 MO.) No inpatient visits to display in this time frame [email or web address]
[2021-11-21] MEDS ORDERED: ALLERGY RELIEF10 M1 PO (14:47)
--- NOTE | 2021-11-21 20:14 | EKG ---
[facility] [address] [place] [address] Signed Sinus bradycardia Left bundle branch block Abnormal ECG Confirmed by SHARON NELSON MD ([id number] on 11/21/2021 8:14:43 PM Electronically Signed By: SHARON NELSON MD 11/21/212013 PATIENT NAME: ALYSSACLEO JOSETTE Electrocardiogram DATE OF : 63 PHYSICIAN: SHARON NELSON MD REPORT #: [id number] REPORT IS CONFIDENTIAL AND NOT TO BE RELEASED WITHOUT AUTHORIZATION
== END 2021-11-21 18:03 | disposition home or self-care (01) ==
LOC: ED 14:26
DX: J98.8 Other specified respiratory disorders (principal); B97.89 Other viral agents as the cause of diseases classified elsewhere; Z20.822 Contact with and (suspected) exposure to COVID-19; I50.9 Heart failure, unspecified; F17.200 Nicotine dependence, unspecified, uncomplicated; Z88.8 Allergy status to other drugs, medicaments and biological substances; Z79.899 Other long term (current) drug therapy
CPT/HCPCS: 36415; 71045; 80053; 83880; 85025; 87502; 93005; 93010; 99285-25; C9803; U0003

== ENCOUNTER 2022-06-25 07:29 | Emergency (ER) | payer OTHER ==
[~2022-06-25] VITALS: Ht 157.5 cm; Wt 88.9 kg
[~2022-06-25 07:29] MED LIST changes: +ALLERGY RELIEF10 M1 PO
--- OUTSIDE RECORDS SUMMARY | 2022-06-25 07:32 | XMS ---
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 ED/UCC VISIT TRACKING (12 MO.) 06/25/2022 07:30 [facility] [place] TYPE: Emergency COMPLAINT: - HIGH B/P, HEADACHE, NAUSEA, CHEST PAIN 11/21/2021 14:27 [facility] TYPE: Emergency COMPLAINT: - LOW O2 SATS DIAGNOSES: - Contact with and (suspected) exposure to COVID-19 - Other halfway (current) drug therapy - Cough, unspecified - Other viral agents as the cause of diseases classified elsewhere - Heart failure, unspecified - Allergy status to other drugs, medicaments and biological substances - Other specified respiratory disorders - Nicotine dependence, unspecified, uncomplicated 10/18/2021 13:23 [facility] TYPE: Emergency COMPLAINT: - ABD PAIN DIAGNOSES: - Nicotine dependence, unspecified, uncomplicated - Other exterminator helper termite (current) drug therapy - Allergy status to other drugs, medicaments and biological substances - Heart failure, unspecified - Unspecified abdominal pain 06/26/2021 10:13 [facility] TYPE: Emergency COMPLAINT: - TORSO PAIN DIAGNOSES: - Other exterminator helper termite (current) drug therapy - Nicotine dependence, unspecified, uncomplicated - Heart failure, unspecified - Lower abdominal pain, unspecified INPATIENT VISIT TRACKING (12 MO.) No inpatient visits to display in this time frame [id number]
[2022-06-25] MEDS ORDERED: REGLAN10 MG PO (09:23)
--- NOTE | 2022-06-25 13:59 | EKG ---
[facility] [address] [place] [address] Signed Normal sinus rhythm Left bundle branch block Abnormal ECG No previous ECGs available Confirmed by KAILEE DEGROOT MD ([id number] on 06/25/2022 1:59:17 PM Electronically Signed By: KAILEE DEGROOT MD 06/25/22 1359 PATIENT NAME: CLEO SHAH JOSETTE Electrocardiogram DATE OF : 63 PHYSICIAN: KAILEE DEGROOT MD REPORT #: [id number] REPORT IS CONFIDENTIAL AND NOT TO BE RELEASED WITHOUT AUTHORIZATION
== END 2022-06-25 09:39 | disposition home or self-care (01) ==
LOC: ED 07:29
DX: R51.9 Headache, unspecified (principal); R03.0 Elevated blood-pressure reading, without diagnosis of hypertension; I50.9 Heart failure, unspecified; F17.200 Nicotine dependence, unspecified, uncomplicated; Z88.6 Allergy status to analgesic agent; Z79.899 Other long term (current) drug therapy; Z20.822 Contact with and (suspected) exposure to COVID-19
CPT/HCPCS: 36415; 71045; 80053; 83735; 84484; 85025; 87502; 93005; 93010; 96374; 96375; 99285-25; C9803; J1200; J1885; J2405; J2765; J7030; U0003